=== PATIENT | male | born 1975 | race Caucasian/White ===

== ENCOUNTER 2017-03-24 16:34 | Emergency (ER) | payer OTHER ==
[~2017-03-24] VITALS: Ht 175.3 cm; Wt 99.8 kg
[~2017-03-24 16:34] MED LIST: ALPR1T PO; ALPR2TAB2 PO; CEPH500T PO; HYDR-3729 PO; HYDR-3812 PO; IBP800T PO; NAPR-243 PO; NICOTINE PATCH1 EAC3 TD; TRAM50TA2 PO
--- OUTSIDE RECORDS SUMMARY | 2017-03-24 16:42 | XMS REPORT ---
Author Author JANAK RODAS Organization [employer] Address Unknown Phone Unavailable Care Team Providers Care Reimbursement Coordinator Name Role Phone JANAK RODAS CP Unavailable Allergies, Adverse Reactions, Alerts Substance Reaction Event Type N.K.D.A. Info Not Available Non Drug Allergy Problems Problem Type Condition Code Onset Dates Condition Status Assessment Hypertension I10 Active Problem GERD (gastroesophageal reflux disease) K21.9 Active Problem Tobacco abuse Z72.0 Active Assessment Dental caries K02.9 Active Assessment Tobacco abuse Z72.0 Active Problem Routine health maintenance Z00.00 Active Problem Family history of diabetes mellitus Z83.3 Active Problem Dental caries K02.9 Active Problem Hypertension I10 Active Problem Midline thoracic back pain M54.6 Active Problem Depression with anxiety F41.8 Active Problem Insomnia G47.00 Active Medications Medication Code System Code Instructions Start Date End Date Status Dosage Prilosec [facility] [address]-64 20 mg Orally Once a day 1 capsules Ibuprofen [facility] [address]-50 800 MG Orally Three times a day October 04, 2015 1 tablet Amlodipine Besylate [facility] [address]-42 10 mg Orally Once a day January 04, 2016 1 tablet Xanax [facility] [address]-81 2 MG Orally Three-four times a day 1 tablet [place] [facility] [address]-75 5-325 MG Orally every 6 hrs January 08, 2016 1 tablet as needed Lisinopril [facility] [address]-99 20 mg Orally Once a day- October 04, 2015 1 tablet Procedures Procedure Coding System Code Date Office Visit, Est Pt., Level 3 CPT-4 30213 January 04, 2016 Vital Signs Date/Time: January 04, 2016 Cardiac Monitoring Heart Rate 88 bpm Weight 200.0 lbs Height 70 in Blood Pressure Diastolic 100 mmHg Blood Pressure Systolic 160 mmHg Results No Known Results Summary Purpose eClinicalWorks Submission
--- OUTSIDE RECORDS SUMMARY | 2017-03-24 16:42 | XMS REPORT ---
Author Author JANAK RODAS [facility] [employer] Address Unknown Phone Unavailable Care Team Providers Care Pediatrician Managing Partner Name Role Phone JANAK RODAS CP Unavailable Allergies, Adverse Reactions, Alerts Substance Reaction Event Type N.K.D.A. Info Not Available Non Drug Allergy Problems Problem Type Condition Code Onset Dates Condition Status Assessment Hypertension I10 Active Problem Tobacco abuse Z72.0 Active Assessment Routine health maintenance Z00.00 Active Problem Family history of diabetes mellitus Z83.3 Active Problem Depression with anxiety F41.8 Active Problem Routine health maintenance Z00.00 Active Problem Midline thoracic back pain M54.6 Active Problem GERD (gastroesophageal reflux disease) K21.9 Active Problem Insomnia G47.00 Active Problem Hypertension I10 Active Assessment Insomnia G47.00 Active Assessment Depression with anxiety F41.8 Active Assessment Family history of diabetes mellitus Z83.3 Active Assessment GERD (gastroesophageal reflux disease) K21.9 Active Medications Medication Code System Code Instructions Start Date End Date Status Dosage Prilosec [facility] [address]-30 20 mg Orally Once a day 1 capsules Amlodipine Besylate [facility] [address]-32 5 MG Orally Once a day October 19, 2015 1 tablet Remeron [facility] [address]-14 15 MG Orally Once a day 1 tablet before bedtime in the evening Xanax [facility] [address]-52 2 MG Orally Three-four times a day 1 tablet Ibuprofen [facility] [address]-02 800 MG Orally Three times a day October 04, 2015 1 tablet Lisinopril [facility] [address]-82 20 MG Orally Once a day October 04, 2015 1 tablet Hydrocodone-Acetaminophen [facility] [address]-73 5-325 MG Orally every 6 hrs 1 tablet as needed Procedures Procedure Coding System Code Date Office Visit, Est Pt., Level 3 CPT-4 68808 October 19, 2015 Vital Signs Date/Time: October 19, 2015 Temperature 98.7 F Weight 177.0 lbs Height 70 in BMI 25.39 Index Blood Pressure Diastolic 110 mmHg Blood Pressure Systolic 200 mmHg Cardiac Monitoring Heart Rate 88 bpm Results No Known Results Summary Purpose [employer]ClinicalWorks Submission
--- OUTSIDE RECORDS SUMMARY | 2017-03-24 16:42 | XMS REPORT ---
Author Author SHARMILA SCHULZ Organization [facility] Address [address] [place] [address] Care Team Providers Care Biophysics Professor Name Role Phone SHARMILA SCHULZ Unavailable PROBLEMS Type Condition ICD9-CM Code [id number] Code Onset Dates Condition Status SNOMED Code Problem Family history of diabetes mellitus Z83.3 Active 771233313 Problem Insomnia G47.00 Active 723551659 Problem Depression with anxiety F41.8 Active 898270645 Problem Panic disorder [episodic paroxysmal anxiety] without agoraphobia F41.0 Active 02694653 Problem Primary insomnia F51.01 Active 7793486 Problem Mixed hyperlipidemia E78.2 Active 951740371 Problem Dental caries K02.9 Active 70406918 Problem Anxiety F41.9 Active 25532363 Problem Marijuana use F12.10 Active 19550212 Problem GERD (gastroesophageal reflux disease) K21.9 Active 626127801 Problem Tobacco abuse Z72.0 Active 79596147 Problem Hypertension I10 Active 91020206 Problem Midline thoracic back pain M54.6 Active 859743764 Problem Routine health maintenance Z00.00 Active 681870996 ALLERGIES Substance Reaction Event Type Date Status N.K.D.A. Unknown Non Drug Allergy Jun, Unknown SOCIAL HISTORY No smoking Hx information available PLAN OF CARE Activity Details Follow Up prn Reason: VITAL SIGNS Height 70 in 2016-07-20 Weight 192.4 lbs 2016-07-20 Temperature 98.2 degrees Fahrenheit 2016-07-20 Heart Rate 90 bpm 2016-07-20 Respiratory Rate 18 2016-07-20 BMI 27.60 kg/m2 2016-07-20 Blood pressure systolic 136 mmHg 2016-07-20 Blood pressure diastolic 82 mmHg 2016-07-20 MEDICATIONS Medication Instructions Dosage Frequency Start Date End Date Duration Status Amlodipine Besylate 10 mg Orally Once a day 1 tablet 24h Dec, Active Lisinopril 20 mg Orally Once a day- 1 tablet Sep, Active BuPROPion HCl (XL) 300 MG Orally Once a day 1 tablet in the morning 24h Active Clonazepam 1 MG Orally Twice a day 1 tablet every morning and 2 tablets at night 12h Active Prilosec 20 mg Orally Once a day 1 capsules 24h Active Atorvastatin Calcium 10 mg Orally Once a day 1 tablet 24h 15 May, 2016 30 day(s) Active Trazodone HCl 100 MG Orally Once a day 2 tablet at bedtime 24h Active Hydrocodone-Acetaminophen 5-325 MG Orally every 6 hrs 1 tablet as needed 6h Jun, 2 Jul, 2016 7 days Active RESULTS Name Result Date Reference Range Xray : Ankle, Right 3 views (IN HOUSE) 2016-07-20 PROCEDURES Procedure Date Ordered Related Diagnosis Body Site X-RAY EXAM OF ANKLE Jul 20, 2016 Office Visit, Est Pt., Level 3 Jul 20, 2016 IMMUNIZATIONS No Known Immunizations
--- OUTSIDE RECORDS SUMMARY | 2017-03-24 16:42 | XMS REPORT ---
Author Author SHARMILA SCHULZ Organization [facility] Address [address] [place] [address] Care Team Providers Care Cardio Tech Name Role Phone SHARMILA SCHULZ Unavailable PROBLEMS Type Condition ICD9-CM Code [id number] Code Onset Dates Condition Status SNOMED Code Problem Family history of diabetes mellitus Z83.3 Active 349993788 Problem Insomnia G47.00 Active 622455877 Problem Depression with anxiety F41.8 Active 501335386 Problem Panic disorder [episodic paroxysmal anxiety] without agoraphobia F41.0 Active 15744295 Problem Primary insomnia F51.01 Active 9934284 Problem Mixed hyperlipidemia E78.2 Active 244233720 Problem Dental caries K02.9 Active 96304311 Problem Anxiety F41.9 Active 83092405 Problem Marijuana use F12.10 Active 75953238 Problem GERD (gastroesophageal reflux disease) K21.9 Active 335133196 Problem Tobacco abuse Z72.0 Active 61026872 Problem Hypertension I10 Active 09694005 Problem Midline thoracic back pain M54.6 Active 097813383 Problem Routine health maintenance Z00.00 Active 231215485 ALLERGIES Unknown Allergies SOCIAL HISTORY No smoking Hx information available PLAN OF CARE VITAL SIGNS MEDICATIONS Unknown Medications RESULTS No Results PROCEDURES No Known procedures IMMUNIZATIONS No Known Immunizations
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
--- OUTSIDE RECORDS SUMMARY | 2017-03-24 16:42 | XMS REPORT ---
Author Author JANET HARRIS [facility] Address [address] [place] [address] Care Team Providers Care Waxing Machine Operator Name Role Phone AJNET HARRIS Unavailable PROBLEMS Type Condition ICD9-CM Code DUQ20-AD Code Onset Dates Condition Status SNOMED Code Problem Family history of diabetes mellitus Z83.3 Active 119783985 Problem Insomnia G47.00 Active 075949789 Problem Depression with anxiety F41.8 Active 960501641 Problem Panic disorder [episodic paroxysmal anxiety] without agoraphobia F41.0 Active 97977944 Problem Primary insomnia F51.01 Active 5662224 Problem Mixed hyperlipidemia E78.2 Active 978774089 Problem Dental caries K02.9 Active 10514010 Problem Anxiety F41.9 Active 59888286 Problem Marijuana use F12.10 Active 55855633 Problem GERD (gastroesophageal reflux disease) K21.9 Active 522749305 Problem Tobacco abuse Z72.0 Active 66316766 Problem Hypertension I10 Active 87615851 Problem Midline thoracic back pain M54.6 Active 225938408 Problem Routine health maintenance Z00.00 Active 082043571 ALLERGIES No Information SOCIAL HISTORY Never Assessed PLAN OF CARE Activity Details Follow Up prn Reason: VITAL SIGNS Height 70 in 2016-07-27 Blood pressure systolic 152 mmHg 2016-07-27 Blood pressure diastolic 88 mmHg 2016-07-27 MEDICATIONS Medication Instructions Dosage Frequency Start Date End Date Duration Status Hydrocodone-Acetaminophen 7.5-325 MG Orally every 6 hrs prn for pain 1 tablet as needed Jul, Aug, 28 days Active RESULTS No Results PROCEDURES No Known procedures [...]
--- OUTSIDE RECORDS SUMMARY | 2017-03-24 16:42 | XMS REPORT ---
Author Author SHANEL JEFF [facility] [employer] Address Unknown Phone Unavailable Care Team Providers Care Pickle Pumper Name Role Phone SHANEL JEFF CP Unavailable Allergies, Adverse Reactions, Alerts Substance Reaction Event Type Codeine Sulfate Info Not Available Drug Allergy Problems Problem Type Condition ICD-9 Code Onset Dates Condition Status Problem Major depressive disorder, recurrent episode, unspecified 296.30 Active Problem Other dysfunctions of sleep stages or arousal from sleep 307.47 Active Problem Screening examination for pulmonary tuberculosis V74.1 Active Assessment Concussion 850.9 Active Medications Medication Code System Code Instructions Start Date End Date Status Dosage Ibuprofen [facility] [address]-89 600 MG Orally Three times a day 1 tablet Keflex [facility] [address]-27 500 MG Orally Twice a day 1 capsule Xanax [facility] [address]-84 0.5 MG Orally Three times a day 1 tablet Bactrim [facility] [address]-05 400-80 MG Orally Once a day 2 tablets Tramadol HCl [facility] [address]-11 50 MG Orally every 6 hrs 1 tablet as needed Procedures Procedure Coding System Code Date Office Visit, Est Pt., Level 3 CPT-4 33502 Feb 19, 2015 Vital Signs Date/Time: Feb 19, 2015 Temperature 98.0 F Weight 155 lbs Height 70 in BMI 22.24 Index Blood Pressure Diastolic 88 mmHg Blood Pressure Systolic 140 mmHg Cardiac Monitoring Heart Rate 78 bpm Results No Known Results Summary Purpose eClinicalWorks Submission
--- OUTSIDE RECORDS SUMMARY | 2017-03-24 16:42 | XMS REPORT ---
Author Author JANAK RODAS Organization [employer] Address Unknown Phone Unavailable Care Team Providers Care Phlebotomy Support Tech Name Role Phone JANAK RODAS CP Unavailable Allergies No Known Allergies Problems Problem Type Condition Code Onset Dates Condition Status Problem GERD (gastroesophageal reflux disease) K21.9 Active Problem Tobacco abuse Z72.0 Active Problem Routine health maintenance Z00.00 Active Problem Family history of diabetes mellitus Z83.3 Active Problem Dental caries K02.9 Active Problem Hypertension I10 Active Problem Midline thoracic back pain M54.6 Active Problem Depression with anxiety F41.8 Active Problem Insomnia G47.00 Active Medications Medication Code System Code Instructions Start Date End Date Status Dosage Amlodipine Besylate [facility] [address]-13 10 mg Orally Once a day January 04, 2016 1 tablet Lisinopril [facility] [address]-34 20 mg Orally Once a day- October 04, 2015 1 tablet [address] [facility] [address]-25 20 mg Orally Once a day 1 capsules Results No Known Results Summary Purpose eClinicalWorks Submission
--- OUTSIDE RECORDS SUMMARY | 2017-03-24 16:42 | XMS REPORT ---
Author Author JANAK RODAS Organization [facility] Address [address] [place] [address] Care Team Providers Care Stream Control Officer Name Role Phone RODASROCHELLE GallardoELE Unavailable PROBLEMS Type Condition ICD9-CM Code MVT51-OU Code Onset Dates Condition Status SNOMED Code Problem Depression with anxiety F41.8 Active 121709005 Problem Routine health maintenance Z00.00 Active 317593549 Problem Family history of diabetes mellitus Z83.3 Active 464626240 Problem Panic disorder [episodic paroxysmal anxiety] without agoraphobia F41.0 Active 49903894 Problem Primary insomnia F51.01 Active 7087719 Problem Marijuana use F12.10 Active 44577135 Problem Dental caries K02.9 Active 99621441 Problem Anxiety F41.9 Active 27133131 Problem Mixed hyperlipidemia E78.2 Active 441882119 Problem GERD (gastroesophageal reflux disease) K21.9 Active 986516765 Problem Midline thoracic back pain M54.6 Active 104182536 Problem Hypertension I10 Active 31088031 Problem Tobacco abuse Z72.0 Active 63955032 Problem Insomnia G47.00 Active 301884100 ALLERGIES Unknown Allergies SOCIAL HISTORY No smoking Hx information available PLAN OF CARE VITAL SIGNS MEDICATIONS Medication Instructions Dosage Frequency Start Date End Date Duration Status Atorvastatin Calcium 10 mg Orally Once a day 1 tablet 24h May, 30 day(s) Active RESULTS No Results PROCEDURES No Known procedures IMMUNIZATIONS No Known Immunizations
--- OUTSIDE RECORDS SUMMARY | 2017-03-24 16:42 | XMS REPORT ---
Author Author SHANEL JEFF [facility] eClinicalWorks Address Unknown Phone Unavailable Care Team Providers Care Press Breaker Name Role Phone SHANEL JEFF CP Unavailable [...] Instructions Start Date End Date Status Dosage Xanax [facility] [address]-11 0.5 MG Orally Three times a day 1 tablet Procedures Procedure Coding System Code Date Office Visit, Est Pt., Level 2 CPT-4 41049 Feb 25, 2015 Vital Signs Date/Time: Feb 25, 2015 Temperature 99.7 F Weight 153.1 lbs Height 70 in BMI 21.97 Index Blood Pressure Diastolic 108 mmHg Blood Pressure Systolic 160 mmHg Cardiac Monitoring Heart Rate 86 bpm Results No Known Results Summary Purpose eClinicalWorks Submission
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
[2017-03-24] MEDS ORDERED: AZIT250T PO (16:53)
[2017-03-24] MEDS ORDERED: DEXAMETHASONE PF 10 MG/ML (DECADRON) VIAL IM STA (16:54)
[2017-03-24] MEDS ORDERED: ACETAMINOPHEN 325 MG TABLET/CAPLET (TYLENOL) PO STA (16:54)
--- NOTE | 2017-03-24 16:54 | ED EENT ---
History of Present Illness General Stated Complaint: R EAR SWOLLEN History of Present Illness Time seen by provider: 16:45 Initial Comments Patient reports increasing right ear pain. He was seen at [facility] yesterday and started on Ciprodex drops. He reports today that they year has become more swollen and he is unable to get the drops into the canal. He reports that his hearing is decreased in the right ear. He also complains of a headache and sinus pressure. He took ibuprofen approximately 5 hours ago, denies any other analgesia. Timing/Duration: abrupt Severity: moderate Location: ear (R) Prearrival Treatment: no prearrival treatment Modifying Factors: Improves With Rest Associated Symptoms: facial pain/swelling, fever Allergies and Home Medications Allergies Coded Allergies: codeine (Unverified Allergy, Mild, UPSET STOMACH, 05/04/10) Home Medications Alprazolam 2 Mg Tablet, 2 MG PO QID PRN for ANXIETY, #90 (Reported) Azithromycin 250 Mg Tablet, 250 MG PO UD, #6 Ref 0 TAKE 2 TABLETS TODAY, THEN TAKE 1 TABLET DAILY FOR 4 MORE DAYS Prescribed by: ANAYELI MESA on 03/24/17 1653 Cephalexin 500 Mg Tablet, 500 MG PO QID, #20 Prescribed by: VAL CUMMINGS on 02/14/15 1727 Hydrocodone/Acetaminophen 1 Each Tablet, 1 EACH PO Q6H PRN for PAIN, #30 Prescribed by: GÉNESIS ANAYA on 02/13/15 1152 Hydrocodone/Acetaminophen 1 Each Tablet, 1-2 EACH PO Q6H PRN for PAIN, #15 Ref 0 Prescribed by: VAL CUMMINGS on 02/14/15 1727 Review of Systems Constitutional: no symptoms reported, see HPI Ears: See HPI, Pain All Other Systems Reviewed Negative Unless Noted: Yes Past Ifaigyq-Koozyt-Ijlcul Hx Patient Social History Recent Foreign Travel: No Contact w/Someone Who Travel: No Immunizations Up To Date Tetanus Booster (TDap): Less than 5yrs Seasonal Allergies Seasonal Allergies: No Surgeries Surgeries: Orthopedic Respiratory Respiratory Disorders: Pneumonia Currently Using CPAP: No Currently Using BIPAP: No Reproductive System Hx Reproductive Disorders: No Sexually Transmitted Disease: No HIV/AIDS: No Genitourinary Genitourinary Disorders: Kidney Stones Gastrointestinal Gastrointestinal Disorders: Ulcer Musculoskeletal Musculoskeletal Disorders: Fractures Psychosocial Behavioral Health Disorders: Anxiety, PTSD Blood Transfusions Adverse Reaction to a Blood Tr: No Reviewed Nursing Assessment Reviewed/Agree w Nursing PMH: Yes Family Medical History Significant Family History: No Pertinent Family Hx Family Medial History: Hypertension 19 MOTHER G8 BROTHER G8 BROTHER G8 BROTHER Neoplasm 19 MOTHER Physical Exam Vital Signs Vital Sign - Last 12Hours 03/24/17 03/24/17 16:56 17:13 Temp 97.5 Pulse 70 Resp 16 B/P (MAP) 127/93 Pulse Ox 16 O2 Delivery Room Air General Appearance: WD/WN, no apparent distress Eyes: bilateral eye normal inspection, bilateral eye PERRL, bilateral eye EOMI Ears: right ear swelling, right ear tenderness, right ear TM dull, right ear other (ear wick placed in the right ear, Ciprodex drops administered. Patient reports hearing improved after ear wick placed.), left ear canal normal, left ear TM normal, bilateral ear auricle normal Nose: normal inspection, sinus tenderness (trace right frontal) Mouth/Throat: normal mouth inspection, pharynx normal, No maxillary swelling, No pharynx swelling, No pharynx tenderness Neck: full range of motion, normal inspection, lymphadenopathy (R) Cardiovascular: normal peripheral pulses, regular rate, rhythm Respiratory: chest non-tender, lungs clear Neurologic/Psychiatric: no motor/sensory deficits, alert, normal mood/affect, oriented x 3 Laceration Repair : Suture Size: 5-0 Progress/Results/Core Measures Results/Orders My Orders Orders - ANAYELI MESA Dexamethasone Pf Injection (Decadron Pf (03/24/17 16:54) Acetaminophen Tablet/Caplet (Tylenol T (03/24/17 16:54) Dexamethasone Injection (Decadron Inject (03/24/17 16:56) Medications Given in ED Current Medications Medications Dose Ordered Sig/Augustin Route Start Time Stop Time Status Last Admin Dose Admin Dexamethasone Sodium Phosphate 10 mg STK-MED ONCE .ROUTE 03/24/17 16:56 03/24/17 17:04 DC 03/24/17 17:05 10 MG Vital Signs/I&O Vital Sign - Last 12Hours 03/24/17 03/24/17 03/24/17 03/24/17 16:56 17:06 17:06 17:13 Temp 97.5 97.5 97.5 97.5 Pulse 70 70 Resp 16 B/P (MAP) 127/93 Pulse Ox 16 16 O2 Delivery Room Air Departure Impression Impression: Primary Impression: Otitis externa Qualified Codes: H60.311 - Diffuse otitis externa, right ear Disposition: 01 HOME, SELF-CARE Condition: Improved Departure-Patient Inst. Decision time for Depature: 16:55 Referrals: JANAK RODAS APRN (PCP/Family) Primary Care Physician Patient Instructions: Outer Ear Infection (DC) Add. Discharge Instructions: Leave earwick in place and continue to administer eardrops as prescribed, replace earwick as needed. Follow-up at [facility] in 2-3 days if symptoms are not improving. Take antibiotic as prescribed. Alternate between Tylenol 650 mg and ibuprofen 600 mg every 4 hours for pain or fever. Return to emergency department for temperature greater than 101, new problems or concerns. Scripts Azithromycin (Zithromax) 250 Mg Tablet 250 MG PO UD, #6 TAB 0 Refills TAKE 2 TABLETS TODAY, THEN TAKE 1 TABLET DAILY FOR 4 MORE DAYS Prov: ANAYELI MESA 03/24/17 ANAYELI MESA Mar 24, 2017 16:54
[2017-03-24] MEDS ORDERED: DEXAMETHASONE 10 MG/ML (DECADRON) 1 ML VIAL ONE (16:56)
[2017-03-24 17:13] VITALS: BP 127/93
== END 2017-03-24 17:13 | disposition home or self-care (01) ==
LOC: EDUNIT# 16:34 → ER 16:37
DX: H60.91 Unspecified otitis externa, right ear (principal); F41.9 Anxiety disorder, unspecified; F43.10 Post-traumatic stress disorder, unspecified; Z87.81 Personal history of (healed) traumatic fracture; Z87.442 Personal history of urinary calculi; Z87.01 Personal history of pneumonia (recurrent)
CPT/HCPCS: 96372; 99284

== ENCOUNTER 2018-03-18 20:34 | Emergency (ER) | payer OTHER ==
[~2018-03-18] VITALS: Ht 182.9 cm; Wt 104.3 kg
[~2018-03-18 20:34] MED LIST changes: +ACHD5005 PO; +AZIT250T PO; -HYDR-3812 PO
--- NOTE | 2018-03-18 21:12 | ED Abdominal Pain ---
General Stated Complaint: POSS HERNIA Source of Information: Patient Exam Limitations: No Limitations History of Present Illness Date Seen by Provider: Mar 18, 2018 Time Seen by Provider: 21:08 Initial Comments To ER with suspicions of a hernia. He states this began last night when he was coughing which prompted a vomiting episode. He then developed some umbilical pain described as a burning sensation. He's had a small bulge in the belly button region for several months but only yesterday to become painful. No vomiting today, passing gas and having bowel movements as per his usual. However he has this persistent burning pain that better when he stands up and worse when he sits down. He does drink about 6-8 shots of whiskey daily, also ran out of his Klonopin 1 mg tablets 5-7 days ago. Timing/Duration: 24 Hours Severity/Quality: Moderate Radiation: No Radiation Associated Symptoms: Nausea/Vomiting (last night) Allergies and Home Medications Allergies Coded Allergies: codeine (Unverified Allergy, Mild, UPSET STOMACH, 05/04/10) Home Medications Alprazolam 2 Mg Tablet, 2 MG PO QID PRN for ANXIETY, (Reported) Azithromycin 250 Mg Tablet, 250 MG PO UD TAKE 2 TABLETS TODAY, THEN TAKE 1 TABLET DAILY FOR 4 MORE DAYS Prescribed by: ANAYELI MESA on 03/24/17 1653 Cephalexin 500 Mg Tablet, 500 MG PO QID Prescribed by: VAL CUMMINGS on 02/14/15 1727 Hydrocodone Bit/Acetaminophen 1 Each Tablet, 1-2 EACH PO Q6H PRN for PAIN Prescribed by: VAL CUMMINGS on 02/14/15 172 Hydrocodone/Acetaminophen 1 Each Tablet, 1 EACH PO Q6H PRN for PAIN Prescribed by: GÉNESIS ANAYA on 02/13/15 1152 Patient Home Medication List Home Medication List Reviewed: Yes Review of Systems Review of Systems Constitutional: see HPI EENTM: No Symptoms Reported Respiratory: See HPI, Cough Gastrointestinal: See HPI, Abdominal Pain; Denies Constipated, Denies Diarrhea ; Nausea Genitourinary: No Symptoms Reported Musculoskeletal: no symptoms reported Skin: no symptoms reported Psychiatric/Neurological: No Symptoms Reported, Emotional Problems Past Bragbvu-Qgbpbc-Avvrsm Hx Patient Social History Recent Foreign Travel: No Contact w/Someone Who Travel: No Immunizations Up To Date Tetanus Booster (TDap): Less than 5yrs Seasonal Allergies Seasonal Allergies: No Past Medical History Orthopedic Pneumonia Currently Using CPAP: No Currently Using BIPAP: No Reproductive Disorders: No Sexually Transmitted Disease: No HIV/AIDS: No Kidney Stones Ulcer Fractures Anxiety, PTSD Adverse Reaction/Blood Tranf: No Family Medical History Hypertension 19 MOTHER G8 BROTHER G8 BROTHER G8 BROTHER Neoplasm 19 MOTHER No Pertinent Family Hx Physical Exam Vital Signs Vital Signs - First Documented 03/18/18 21:00 Temp 98.4 Pulse 120 Resp 18 B/P (MAP) 154/118 (130) Pulse Ox 95 O2 Delivery Room Air Capillary Refill : Height/Weight/BMI Height: 5'9.00" Weight: 220lbs. 8.0oz. 99.914529hr; BMI Method:Estimated General Appearance: WD/WN, no apparent distress HEENT: PERRL/EOMI, normal ENT inspection Respiratory: no respiratory distress, no accessory muscle use Cardiovascular: regular rate, rhythm, no murmur Gastrointestinal: normal bowel sounds, soft, tenderness ( umbilical bulge which does not feel like a loop of bowel but more likely a fat-containing umbilical hernia. Bowel sounds are hypoactive.) Extremities: normal range of motion, non-tender Neurologic/Psychiatric: alert, normal mood/affect, oriented x 3 Skin: normal color, warm/dry Procedures/Interventions Suture Size: 5-0 Progress/Results/Core Measures Results/Orders Lab Results Laboratory Tests Test 03/18/18 21:20 Range/Units White Blood Count 9.5 4.3-11.0 10^3/uL Red Blood Count 4.86 4.35-5.85 10^6/uL Hemoglobin 16.6 13.3-17.7 G/DL Hematocrit 46 40-54 % Mean Corpuscular Volume 94 80-99 FL Mean Corpuscular Hemoglobin 34 25-34 PG Mean Corpuscular Hemoglobin Concent 36 32-36 G/DL Red Cell Distribution Width 12.5 10.0-14.5 % Platelet Count 323 130-400 10^3/uL Mean Platelet Volume 9.6 7.4-10.4 FL Neutrophils (%) (Auto) 72 42-75 % Lymphocytes (%) (Auto) 19 12-44 % Monocytes (%) (Auto) 9 0-12 % Eosinophils (%) (Auto) 0 0-10 % Basophils (%) (Auto) 0 0-10 % Neutrophils # (Auto) 6.8 1.8-7.8 X 10^3 Lymphocytes # (Auto) 1.8 1.0-4.0 X 10^3 Monocytes # (Auto) 0.8 0.0-1.0 X 10^3 Eosinophils # (Auto) 0.0 0.0-0.3 10^3/uL Basophils # (Auto) 0.0 0.0-0.1 10^3/uL My Orders Orders - BRIT ROGERS APRN Cbc With Automated Diff (03/18/18 21:06) Ct Abdomen/Pelvis Wo (03/18/18 21:06) Clonazepam Tablet (Klonopin Tablet) (03/18/18 21:15) Lorazepam Tablet (Ativan Tablet) (03/18/18 21:30) Lorazepam Tablet (Ativan Tablet) (03/18/18 21:45) Vital Signs/I&O 03/18/18 21:00 Temp 98.4 Pulse 120 Resp 18 B/P (MAP) 154/118 (130) Pulse Ox 95 O2 Delivery Room Air Departure Impression Primary Impression: fat-containing umbilical hernia Disposition: 01 HOME, SELF-CARE Condition: Stable Departure-Patient Inst. Decision time for Depature: 21:11 Referrals: [facility] [place] Primary Care Physician JANAK RODAS APRN (Family) Primary Care Physician NANDO STEVEN BRETT D DO JENKINS, XAVIER M MD KIDO, TAKAAKI MD Patient Instructions: Abdominal Hernia (DC) Add. Discharge Instructions: 1. Follow-up with your regular doctor or one of the surgeons listed for further evaluation. BRIT ROGERS APRN Mar 18, 2018 21:12
[2018-03-18] MEDS ORDERED: clonazePAM 1 MG (KlonoPIN) TAB PO ONE (21:15)
[2018-03-18 21:28] LABS: BASOPHILS % (AUTO) 0 % (0-10); EOSINOPHILS % (AUTO) 0 % (0-10); HEMATOCRIT 46 % (40-54); HEMOGLOBIN 16.6 G/DL (13.3-17.7); LYMPHOCYTES # (AUTO) 1.8 X 10^3 (1.0-4.0); LYMPHOCYTES % (AUTO) 19 % (12-44); MEAN CORPUSCULAR HEMOGLOBIN 34 PG (25-34); MEAN CORPUSCULAR HGB CONC 36 G/DL (32-36); MEAN CORPUSCULAR VOLUME 94 FL (80-99); MEAN PLATELET VOLUME 9.6 FL (7.4-10.4); MONOCYTES # (AUTO) 0.8 X 10^3 (0.0-1.0); MONOCYTES % (AUTO) 9 % (0-12); NEUTROPHILS # (AUTO) 6.8 X 10^3 (1.8-7.8); NEUTROPHILS % (AUTO) 72 % (42-75); PLATELET COUNT 323 10^3/uL (130-400); RED BLOOD COUNT 4.86 10^6/uL (4.35-5.85); RED CELL DISTRIBUTION WIDTH 12.5 % (10.0-14.5); WHITE BLOOD COUNT 9.5 10^3/uL (4.3-11.0)
[2018-03-18] MEDS ORDERED: LORazepam 1 MG (ATIVAN) TAB PO ONE (21:30)
[2018-03-18] MEDS ORDERED: LORazepam 0.5 MG (ATIVAN) TABLET PO ONE (21:45)
--- NOTE | 2018-03-18 21:48 | Diagnostic Imaging Report ---
PROCEDURE: CT abdomen and pelvis without contrast. TECHNIQUE: Multiple contiguous axial images were obtained through the abdomen and pelvis without the use of intravenous contrast. INDICATION: Abdominal pain. Comparison is made with prior CT from 02/12/2015. The lung bases are clear. The liver and gallbladder are unremarkable. The pancreas and spleen are unremarkable. No adrenal mass is seen. No renal calculi or hydronephrosis is identified. Aorta is calcified but nonaneurysmal. The small and large bowel loops are normal caliber. No obstruction is seen. Small fat-containing umbilical hernia is again noted. No herniated bowel loops are seen. The appendix is unremarkable. There is no ascites. Bladder is unremarkable. IMPRESSION: Small fat containing umbilical hernia. No other significant abnormality is detected. Dictated by: Dictated on workstation # [id number]
[2018-03-18 21:56] VITALS: BP 155/116
== END 2018-03-18 21:56 | disposition home or self-care (01) ==
LOC: EDUNIT# 20:34 → ER 20:35
DX: K42.9 Umbilical hernia without obstruction or gangrene (principal); F41.9 Anxiety disorder, unspecified; F43.10 Post-traumatic stress disorder, unspecified; Z88.5 Allergy status to narcotic agent; Z87.01 Personal history of pneumonia (recurrent); Z87.442 Personal history of urinary calculi; Z87.19 Personal history of other diseases of the digestive system
CPT/HCPCS: 36415; 74176; 85025

== ENCOUNTER 2018-03-22 18:26 | Emergency (ER) | payer OTHER ==
[2018-03-22] MEDS ORDERED: PHEN-640 PO (22:24)
[2018-03-22] MEDS ORDERED: CLON1TAB13 PO (23:07)
== END 2018-03-22 19:50 | disposition left against medical advice (07) ==
LOC: EDUNIT# 18:26 → ER 18:27
DX: K46.9 Unspecified abdominal hernia without obstruction or gangrene (principal); R30.0 Dysuria

== ENCOUNTER 2018-03-22 20:53 | Emergency (ER) | payer OTHER ==
[~2018-03-22] VITALS: Ht 182.9 cm; Wt 104.3 kg
--- NOTE | 2018-03-22 21:50 | ED GU-Male ---
General Chief Complaint: -Male Stated Complaint: HERNIA, TROUBLE URINATING Nursing Triage Note: PT REPORTS COMING TO ER ON SUNDAY OR SUNDAY AND BEING TOLD HE HAS A HERNIA. WENT TO [facility] FOR URINATION PROBLEMS. [facility] PRESCRIBED MEDICATION TO HELP PT WITH URINATION AND ANTIBIOTIC. PT STATES HE IS NOT TAKING MEDICATION TO HELP HIM URINATE. PT STATES HE HAS URINATED SMALL AMOUNTS SINCE VISITING [facility]. STATES HE IS HAVING DULL "BLADDER PAINS". Source: patient Exam Limitations: no limitations History of Present Illness Date Seen by Provider: Mar 22, 2018 Time Seen by Provider: 21:48 Initial Comments To ER With reports of suprapubic abdominal pain, sensation of needing to urinate and sensation of incomplete bladder emptying. He states that he feels as though his bladder is full at this time but is unable to urinate. Bladder scan at the bedside reveals 30 mL of urine. He was seen at [facility] today and was given a prescription of Urecholine and Bactrim for these symptoms after providing a urine sample. He is unsure whether or not he had a bladder infection. He was seen here a few days ago and diagnosed with a fat- containing umbilical hernia. Timing/Duration: just prior to arrival Severity/Quality: moderate Location: suprapubic Radiation: none Activities at Onset: none Prior Genitourinary Problems: none Associated Symptoms: urinary frequency Allergies and Home Medications Allergies Coded Allergies: codeine (Unverified Allergy, Mild, UPSET STOMACH, 05/04/10) Home Medications Alprazolam 2 Mg Tablet, 2 MG PO QID PRN for ANXIETY, (Reported) Azithromycin 250 Mg Tablet, 250 MG PO UD TAKE 2 TABLETS TODAY, THEN TAKE 1 TABLET DAILY FOR 4 MORE DAYS Prescribed by: ANAYELI MESA on 03/24/17 1653 Cephalexin 500 Mg Tablet, 500 MG PO QID Prescribed by: VAL CUMMINGS on 02/14/15 1727 Clonazepam 1 Mg Tablet, 1 MG PO DAILY Prescribed by: BRIT ROGERS on 03/22/18 2307 Hydrocodone Bit/Acetaminophen 1 Each Tablet, 1-2 EACH PO Q6H PRN for PAIN Prescribed by: VAL CUMMINGS on 02/14/15 1727 Hydrocodone/Acetaminophen 1 Each Tablet, 1 EACH PO Q6H PRN for PAIN Prescribed by: GÉNESIS ANAYA on 02/13/15 1152 Phenazopyridine HCl 200 Mg Tablet, 1 TAB PO TID Prescribed by: BRIT ROGERS on 03/22/18 2224 Patient Home Medication List Home Medication List Reviewed: Yes Review of Systems Review of Systems Constitutional: see HPI EENTM: see HPI Respiratory: no symptoms reported Cardiovascular: no symptoms reported Genitourinary: see HPI, dysuria Musculoskeletal: no symptoms reported Skin: no symptoms reported Psychiatric/Neurological: No Symptoms Reported Endocrine: No Symptoms Reported Hematologic/Lymphatic: No Symptoms Reported Past Rozliiq-Glfhte-Gedukj Hx Patient Social History Alcohol Use: Regular Use Number of Drinks Today: GG Alcohol Beverage of Choice: Whiskey Recreational Drug Use: No Type Used: Cigarettes 2nd Hand Smoke Exposure: Yes Recent Foreign Travel: No Contact w/Someone Who Travel: No Recent Infectious Disease Expo: No Recent Hopitalizations: Yes (hx-pneumonia) Physical Abuse: No Sexual Abuse: No Immunizations Up To Date Tetanus Booster (TDap): Less than 5yrs Seasonal Allergies Seasonal Allergies: No Past Medical History Surgeries: Yes (right hand surgery/left knee arthroscopy) Orthopedic Respiratory: Yes Pneumonia Currently Using CPAP: No Currently Using BIPAP: No Cardiac: No Neurological: No Reproductive Disorders: No Sexually Transmitted Disease: No HIV/AIDS: No Kidney Stones Gastrointestinal: Yes Ulcer Musculoskeletal: Yes (BROKEN ARM ) Fractures Endocrine: No Cancer: No Psychosocial: Yes Anxiety, PTSD Integumentary: No Blood Disorders: No Adverse Reaction/Blood Tranf: No Family Medical History Hypertension 19 MOTHER G8 BROTHER G8 BROTHER G8 BROTHER Neoplasm 19 MOTHER No Pertinent Family Hx Physical Exam Vital Signs Vital Signs - First Documented 03/22/18 20:57 Temp 97.4 Pulse 116 Resp 14 B/P (MAP) 166/110 (128) Pulse Ox 98 Capillary Refill : Less Than 3 Seconds Height, Weight, BMI Height: 6'0" Weight: 230lbs. 8.0oz. 104.254755ut; BMI Method:Stated General Appearance: WD/WN, no apparent distress, other (Tremulous. Reported to RN that he reduce alcohol intake earlier this week.) HEENT: PERRL/EOMI, normal ENT inspection Neck: non-tender, full range of motion Respiratory: no respiratory distress, no accessory muscle use Gastrointestinal: normal bowel sounds, soft, tenderness (suprapubic) Neurologic/Psychiatric: alert, normal mood/affect, oriented x 3 Skin: normal color, warm/dry Procedures/Interventions Suture Size: 5-0 Progress/Results/Core Measures Suspected Sepsis Recent Fever Within 48 Hours: No Infection Criteria Present: None New/Unexplained Altered Menta: No Sepsis Screen: No Definite Risk SIRS Temperature:97.4 Pulse: 116 Respiratory Rate: 14 Laboratory Tests 03/22/18 22:35: White Blood Count 10.5 Blood Pressure 166 /110 Mean: 128 Laboratory Tests 03/22/18 22:35: Creatinine 1.13, Platelet Count 311 Results/Orders Lab Results Laboratory Tests Test 03/22/18 22:03 03/22/18 22:35 Range/Units Urine Color YELLOW Urine Clarity CLEAR Urine pH 6 5-9 Urine Specific [place] 1.025 H 1.016-1.022 Urine Protein 2+ H NEGATIVE Urine Glucose (UA) NEGATIVE NEGATIVE Urine Ketones 1+ H NEGATIVE Urine Nitrite NEGATIVE NEGATIVE Urine Bilirubin 1+ H NEGATIVE Urine Urobilinogen NORMAL NORMAL MG/DL Urine Leukocyte Esterase 1+ H NEGATIVE Urine RBC (Auto) 1+ H NEGATIVE Urine RBC 0-2 /HPF Urine WBC 0-2 /HPF Urine Squamous Epithelial Cells RARE /HPF Urine Crystals NONE /LPF Urine Bacteria NONE /HPF Urine Casts NONE /LPF Urine Mucus MODERATE H /LPF Urine Culture Indicated NO White Blood Count 10.5 4.3-11.0 10^3/uL Red Blood Count 4.71 4.35-5.85 10^6/uL Hemoglobin 16.1 13.3-17.7 G/DL Hematocrit 45 40-54 % Mean Corpuscular Volume 96 80-99 FL Mean Corpuscular Hemoglobin 34 25-34 PG Mean Corpuscular Hemoglobin Concent 36 32-36 G/DL Red Cell Distribution Width 12.4 10.0-14.5 % Platelet Count 311 130-400 10^3/uL Mean Platelet Volume 9.4 7.4-10.4 FL Neutrophils (%) (Auto) 69 42-75 % Lymphocytes (%) (Auto) 21 12-44 % Monocytes (%) (Auto) 10 0-12 % Eosinophils (%) (Auto) 0 0-10 % Basophils (%) (Auto) 0 0-10 % Neutrophils # (Auto) 7.2 1.8-7.8 X 10^3 Lymphocytes # (Auto) 2.2 1.0-4.0 X 10^3 Monocytes # (Auto) 1.0 0.0-1.0 X 10^3 Eosinophils # (Auto) 0.0 0.0-0.3 10^3/uL Basophils # (Auto) 0.0 0.0-0.1 10^3/uL Sodium Level 135 135-145 MMOL/L Potassium Level 4.2 3.6-5.0 MMOL/L Chloride Level 103 98-107 MMOL/L Carbon Dioxide Level 17 L 21-32 MMOL/L Anion Gap 15 H 5-14 MMOL/L Blood Urea Nitrogen 20 H 7-18 MG/DL Creatinine 1.13 0.60-1.30 MG/DL Estimat Glomerular Filtration Rate > 60 BUN/Creatinine Ratio 18 Glucose Level 110 H 70-105 MG/DL Calcium Level 9.7 8.5-10.1 MG/DL My Orders Orders - BRIT ROGERS APRN Bladder Scan (03/22/18 21:05) Ua Culture If Indicated (03/22/18 21:05) Phenazopyridine Tablet (Pyridium Tablet) (03/22/18 22:00) Ns Iv 1000 Ml (Sodium Chloride 0.9%) (03/22/18 22:45) Lorazepam Injection (Ativan Injection) (03/22/18 22:45) Ketorolac Injection (Toradol Injection) (03/22/18 22:45) Cbc With Automated Diff (03/22/18 22:36) Basic Metabolic Panel (03/22/18 22:36) Medications Given in ED Current Medications Medications Dose Ordered Sig/Augustin Route Start Time Stop Time Status Last Admin Dose Admin Ketorolac Tromethamine 15 mg ONCE ONCE IVP 03/22/18 22:45 03/22/18 22:46 DC 03/22/18 22:49 15 MG Lorazepam 1 mg ONCE PRN IVP 03/22/18 22:45 03/22/18 22:49 1 MG Phenazopyridine HCl 200 mg ONCE ONCE PO 03/22/18 22:00 03/22/18 22:01 DC 03/22/18 21:59 200 MG Vital Signs/I&O 03/22/18 20:57 Temp 97.4 Pulse 116 Resp 14 B/P (MAP) 166/110 (128) Pulse Ox 98 Capillary Refill : Less Than 3 Seconds Blood Pressure Mean: 128 Departure Communication (Admissions) 0097-he is not feeling any better. He still has a suprapubic discomfort. His urine was fairly concentrated so I did start an IV, will give a bag of saline. He is also very jittery he saw give a milligram of Ativan IV. He recently reduced his alcohol intake. Also Toradol IV 2307- doing much better at this time after Toradol and Ativan. No longer has the sensation of need to urinate and feels much less jittery. He states that he has not slept in about 48 hours and he feels as though he could finally sleep. In addition to reducing his alcohol intake he also has stopped his clonazepam because he ran out of it. It was last filled in December so he has not used it excessively. States that he does not like going to [facility] to get it filled so he just quit taking. I'll give him a short course of clonazepam to help while he is reducing his alcohol intake. Impression Primary Impression: Dysuria Additional Impression: Anxiety Disposition: 01 HOME, SELF-CARE Condition: Stable Departure-Patient Inst. Decision time for Depature: 22:22 Referrals: [facility] [place] Primary Care Physician JANAK RODAS APRN (Family) Primary Care Physician Patient Instructions: Dysuria, Adult (DC) Add. Discharge Instructions: 1. Call Dr. Balderas, urologist on Sunday to make an appointment to be seen for follow-up. Return to ER for any worsening symptoms such as fevers nausea vomiting or increased pain. Take the medication as directed to help with the discomfort. All discharge instructions reviewed with patient and/or family. Voiced understanding. Scripts Clonazepam (Clonazepam) 1 Mg Tablet 1 MG PO DAILY, #10 TAB Prov: BRIT ROGERS APRN 03/22/18 Phenazopyridine HCl (Pyridium) 200 Mg Tablet 1 TAB PO TID, #6 TAB Prov: BRIT ROGERS APRN 03/22/18 BRIT ROGERS APRN Mar 22, 2018 21:50
[2018-03-22] MEDS ORDERED: PHENAZOPYRIDINE 100 MG (PYRIDIUM) TABLET PO ONE (22:00)
[2018-03-22 22:09] LABS: CLARITY,URINE CLEAR; COLOR,URINE YELLOW; GLUCOSE, URINE (UA) NEGATIVE (NEGATIVE); KETONES,URINE 1+ (NEGATIVE); LEUKOCYTE ESTERASE ,URINE 1+ (NEGATIVE); NITRITE,URINE NEGATIVE (NEGATIVE); PH,URINE 6 (5-9); PROTEIN,URINE 2+ (NEGATIVE); UROBILINOGEN,URINE NORMAL (NORMAL)
[2018-03-22 22:16] LABS: RBC,URINE 0-2 /HPF; SQUAMOUS EPITHELIAL CELL,UR RARE /HPF; WBC,URINE 0-2 /HPF
[2018-03-22] MEDS ORDERED: PHEN-640 PO (22:24)
[2018-03-22 22:41] LABS: BASOPHILS % (AUTO) 0 % (0-10); EOSINOPHILS % (AUTO) 0 % (0-10); HEMATOCRIT 45 % (40-54); HEMOGLOBIN 16.1 G/DL (13.3-17.7); LYMPHOCYTES # (AUTO) 2.2 X 10^3 (1.0-4.0); LYMPHOCYTES % (AUTO) 21 % (12-44); MEAN CORPUSCULAR HEMOGLOBIN 34 PG (25-34); MEAN CORPUSCULAR HGB CONC 36 G/DL (32-36); MEAN CORPUSCULAR VOLUME 96 FL (80-99); MEAN PLATELET VOLUME 9.4 FL (7.4-10.4); MONOCYTES % (AUTO) 10 % (0-12); NEUTROPHILS # (AUTO) 7.2 X 10^3 (1.8-7.8); NEUTROPHILS % (AUTO) 69 % (42-75); PLATELET COUNT 311 10^3/uL (130-400); RED BLOOD COUNT 4.71 10^6/uL (4.35-5.85); RED CELL DISTRIBUTION WIDTH 12.4 % (10.0-14.5); WHITE BLOOD COUNT 10.5 10^3/uL (4.3-11.0)
[2018-03-22] MEDS ORDERED: KETOROLAC 30 MG/ML VIAL IVP ONE (22:45)
[2018-03-22] MEDS ORDERED: NS IV 1000 ML 1,000 ML IV SCH (22:45)
[2018-03-22] MEDS ORDERED: LORazepam INJ 2 MG/ML (ATIVAN) VIAL IVP PRN (22:45)
[2018-03-22 22:57] LABS: BUN/CREATININE RATIO 18; CALCIUM 9.7 MG/DL (8.5-10.1); CARBON DIOXIDE 17 MMOL/L (21-32); CHLORIDE 103 MMOL/L (98-107); CREATININE SERUM 1.13 MG/DL (0.60-1.30); GFR ESTIMATED > 60; GLUCOSE 110 MG/DL (70-105); POTASSIUM 4.2 MMOL/L (3.6-5.0); SODIUM 135 MMOL/L (135-145)
[2018-03-22] MEDS ORDERED: CLON1TAB13 PO (23:07)
[2018-03-22 23:34] VITALS: BP 166/100
[2018-03-23 07:56] LABS: BILIRUBIN,URINE 1+ (NEGATIVE)
== END 2018-03-22 23:34 | disposition home or self-care (01) ==
LOC: EDUNIT# 20:53 → ER 20:54
DX: R30.0 Dysuria (principal); F41.9 Anxiety disorder, unspecified; F43.10 Post-traumatic stress disorder, unspecified; Z88.5 Allergy status to narcotic agent; Z77.22 Contact with and (suspected) exposure to environmental tobacco smoke (acute) (chronic); Z87.01 Personal history of pneumonia (recurrent); Z87.442 Personal history of urinary calculi; Z87.19 Personal history of other diseases of the digestive system
CPT/HCPCS: 36415; 80048; 81000; 85025; 99284

== ENCOUNTER → 2019-01-17 | Outpatient (CLI) | payer SELFPAY ==
[~2019-01-17] MED LIST changes: +CATHETER FLUSH 10 ML SYR IV PRN; +CLON1TAB13 PO; +PHEN-640 PO; +morphine INJ 10 MG/ML 1ML (SYR OR VIAL) ONE
--- NOTE | 2019-01-17 17:43 | Diagnostic Imaging Report ---
RADIOPHARMACEUTICAL: 5.46 mCi Tc-99m Choletec IV. INDICATION: Right upper quadrant abdominal pain. COMPARISON: CT dated March 18, 2018. TECHNIQUE: Anterior dynamic imaging for 1 hour. After 1 hour, the gallbladder was not visualized, then the patient walked for a couple of minutes and additional imaging was obtained. The gallbladder was visualized at that time. Subsequently, patient drank an 8-ounce can of Ensure with additional imaging performed for 60 minutes. FINDINGS: There is homogenous uptake throughout the liver. The gallbladder is visualized at 64 minutes and small bowel at 20 minutes. After the patient ingested an 8-ounce can of Ensure, there is abnormal contraction of the gallbladder with abnormally low calculated GBEF at 30%. IMPRESSION: Delayed visualization of the gallbladder after 60 minutes with associated decreased gallbladder ejection fraction. 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 Given the abnormally low gallbladder ejection fraction, this can also relate to underlying biliary dyskinesia. Dictated by: Dictated on workstation # [id number]
== END ==
LOC: CARD 09:20
PROVIDERS: ATTEND Surgery
DX: R10.11 Right upper quadrant pain (principal); R93.2 Abnormal findings on diagnostic imaging of liver and biliary tract
CPT/HCPCS: 78227

== ENCOUNTER 2019-01-31 10:15 | Outpatient (CLI) | payer OTHER ==
[~2019-01-31] VITALS: Ht 182.9 cm; Wt 100.0 kg
[~2019-01-31 10:15] MED LIST changes: +AMLO10TA7 PO; -CATHETER FLUSH 10 ML SYR IV PRN; +DESV50TA PO; +GABA-488 PO; +LISI-552 PO; +MIRT15TA6 PO; +NABU750T PO; +OMEP20CA13 PO; +TAMS0.4C98 PO; +ZOLP12.546 PO; -morphine INJ 10 MG/ML 1ML (SYR OR VIAL) ONE
== END 2019-01-31 12:27 | disposition home or self-care (01) ==
LOC: PREOP 10:15
PROVIDERS: ATTEND Surgery
DX: Z01.818 Encounter for other preprocedural examination (principal)

== ENCOUNTER 2019-02-06 11:50 | Day surgery (SDC) | payer OTHER ==
[2019-02-06] VITALS (9 sets, daily range): BP systolic 135–153; BP diastolic 85–110
[~2019-02-06] VITALS: Ht 182.9 cm; Wt 117.3 kg
[2019-02-06] MEDS ORDERED: ceFAZolin INJECTION 1,000 MG in WATER (STERILE) FOR INJECTION 10 ML IV ONE (12:15)
[2019-02-06] MEDS: LACTATED RINGERS 1,000 ML IV PRN ×2 (12:30→16:20)
[2019-02-06 12:58] LABS: BASOPHILS % (AUTO) 0 % (0-10); EOSINOPHILS # (AUTO) 0.1 10^3/uL (0.0-0.3); EOSINOPHILS % (AUTO) 1 % (0-10); HEMATOCRIT 43 % (40-54); HEMOGLOBIN 14.9 G/DL (13.3-17.7); LYMPHOCYTES # (AUTO) 1.8 X 10^3 (1.0-4.0); LYMPHOCYTES % (AUTO) 18 % (12-44); MEAN CORPUSCULAR HEMOGLOBIN 32 PG (25-34); MEAN CORPUSCULAR HGB CONC 34 G/DL (32-36); MEAN CORPUSCULAR VOLUME 94 FL (80-99); MEAN PLATELET VOLUME 9.6 FL (7.4-10.4); MONOCYTES # (AUTO) 0.9 X 10^3 (0.0-1.0); MONOCYTES % (AUTO) 9 % (0-12); NEUTROPHILS # (AUTO) 7.2 X 10^3 (1.8-7.8); NEUTROPHILS % (AUTO) 72 % (42-75); PLATELET COUNT 297 10^3/uL (130-400); RED CELL DISTRIBUTION WIDTH 12.2 % (10.0-14.5)
[2019-02-06] MEDS ORDERED: ceFAZolin 2 GM/50 ML NS 50 ML IV ONE (13:00)
--- NOTE | 2019-02-06 13:56 | Progress Note-Pre Operative ---
Pre-Operative Progress Note H&P Reviewed The H&P was reviewed, patient examined and no changes noted. Date Seen by Provider: Feb 06, 2019 Time Seen by Provider: 13:55 Date H&P Reviewed: Feb 06, 2019 Time H&P Reviewed: 13:55 Pre-Operative Diagnosis: biliary dyskinesia, umbilical hernia MARIA D LEDESMA DO Feb 06, 2019 13:56
[2019-02-06] MEDS ORDERED: MIDAZOLAM 2 MG/2 ML (VERSED) VIAL ONE ×2 (14:05→14:22)
[2019-02-06] MEDS ORDERED: MIDAZOLAM 2 MG/2 ML (VERSED) VIAL IVP ONE (14:15)
[2019-02-06] MEDS ORDERED: MIDAZOLAM 2 MG/2 ML (VERSED) VIAL IV ONE (14:15)
[2019-02-06] MEDS ORDERED: ONDANSETRON 4 MG/2 ML (SDV) Z0FRAN ONE ×2 (14:21→15:26)
[2019-02-06] MEDS ORDERED: IOPAMIDOL 61% 30 ML (ISOVUE 300) VIAL IV ONE (14:21)
[2019-02-06] MEDS ORDERED: LIDOCAINE PF 2% 5 ML (XYLOCAINE) VIAL ONE (14:21)
[2019-02-06] MEDS ORDERED: BUP/EPI 0.5% 1:200,000 (MARCAINE) 10ML VIAL IJ ONE (14:21)
[2019-02-06] MEDS ORDERED: proPOfol 200 MG/20 ML (DIPRIVAN) VIAL IV ONE ×2 (14:21→17:16)
[2019-02-06] MEDS ORDERED: fentaNYL INJECTION 250 MCG/5 ML AMP ONE (14:22)
[2019-02-06] MEDS ORDERED: SEVOFLURANE (ULTANE) 15 ML INHAL SOLN ONE ×6 (14:22→17:22)
[2019-02-06] MEDS ORDERED: ROCURONIUM 10 MG/ML 5 ML SYRINGE IV ONE (14:24)
[2019-02-06] MEDS ORDERED: DEXAMETHASONE 10 MG/ML (DECADRON) 1 ML VIAL ONE (15:26)
[2019-02-06] MEDS ORDERED: GLYCOPYRROLATE 0.2 MG/ML (ROBINUL) 2 ML VIAL ONE (15:26)
[2019-02-06] MEDS ORDERED: NEOSTIGMINE 3 MG/3 ML VIAL ONE (15:26)
[2019-02-06] MEDS ORDERED: MEPERIDINE (DEMEROL) INJ 50 MG/ML IVP ONE (16:15)
[2019-02-06] MEDS ORDERED: morphine INJ 10 MG/ML 1ML (SYR OR VIAL) IVP ONE (16:15)
[2019-02-06] MEDS ORDERED: ONDANSETRON 4 MG/2 ML (SDV) Z0FRAN IVP PRN (16:15)
[2019-02-06] MEDS ORDERED: fentaNYL INJECTION 100 MCG/2 ML AMP IVP ONE (16:15)
[2019-02-06] MEDS ORDERED: PHENYLEPHRINE 100 MCG/ML 10 ML (ANESTHESIA) SYR ONE (17:15)
[2019-02-06] MEDS ORDERED: KETOROLAC 30 MG/ML VIAL ONE (17:18)
--- NOTE | 2019-02-06 17:18 | Diagnostic Imaging Report ---
INDICATION: Laparoscopic cholecystectomy. Cholangiogram. COMPARISON: None. TOTAL FLUOROSCOPY TIME: 18 seconds. TOTAL NUMBER OF FLUOROSCOPIC IMAGES SAVED: 79 FINDINGS: Multiple intraoperative image intensifier views of the right upper abdominal quadrant were obtained during intraoperative cholangiogram. Images provided show contrast filling the intra-and extrahepatic biliary ductal systems. No distinct intraluminal filling defects are seen. There is no evidence of obstruction. Contrast empties into the small bowel as expected. Please note, interpreting radiologist was not present during the procedure. IMPRESSION: 1. Intraoperative cholangiogram as described above. Dictated by: Dictated on workstation # [id number]
--- NOTE | 2019-02-06 17:22 | Progress Note-Post Operative ---
Post-Operative Progess Note Surgeon (s)/Automatic Furnace Operator (s) Surgeon MARIA D LEDESMA DO Automatic Furnace Operator: Dr. Angeles Pre-Operative Diagnosis biliary dyskinesia, umbilical hernia Post-Operative Diagnosis same Procedure & Operative Findings Date of Procedure 02/06/19 Procedure Performed/Findings lap janice c ioc and primary umbilical hernia repair Anesthesia Type gen Estimated Blood Loss Estimated blood loss (mL): min Specimens/Packing Specimens Removed gallbladder MARIA D LEDESMA DO Feb 06, 2019 17:22
[2019-02-06] MEDS ORDERED: ACHD5005 PO (17:24)
[2019-02-06] MEDS ORDERED: DOCU-143 PO (17:24)
--- NOTE | 2019-02-06 17:26 | Discharge Inst-Simple/Standard ---
Discharge Inst-Standard Discharge Medications New, Converted or Re-Newed RX: RX on Chart Patient Instructions/Follow Up Plan of Care/Instructions/FU: 2-3 weeks Tai Activity as Tolerated: No Discharge Diet: Regular Diet Other Inst to Patient Follow up Appt: Make appointment for 2 weeks. Instructions: No lifting greater than 10 pounds. No strenuous activity. May shower in 24 hours, no tub bath or soaking. Use incentive spirometer at home as directed. No Smoking Skin/Wound Care: May remove bandages in 48 hours. You have special glue over incisions it will f all off on its own. Symptoms to Report: Appetite Changes, Extremity Discoloration, Numbness/Tingling, Swelling Increased, Bleeding Excessive, Eyesight Changes, Pain Increased, Urine Color Change, Constipation(Persistent), Fever over 101 degree F, Pain/Pressure in chest, Urinating Difficulty, Cough Up/Vomit Blood, Heart Beat Irreg/Pounding, Pain/Pressure in jaw, Vaginal Bleeding Increase, Cramps in feet or legs, Lightheadedness, Pain/Pressure in shoulder, Diarrhea(Persistent), Memory Changes Suddenly, Questions/Concerns, Weight gain consecutive days, Dizziness/Fainting, Nausea/Vomiting, Shortness of Breath, Weight gain over 2 pounds. If eyes or skin turn yellow notify physician. If questions or concerns contact your physician Or seek help at emergency department. MARIA D LEDESMA DO Feb 06, 2019 17:26
[2019-02-06] MEDS ORDERED: HYDROcodone/APAP 5 MG/325 MG (LORTAB) TAB PO ONE (18:45)
--- NOTE | 2019-02-07 04:16 | OPERATIVE REPORT ---
DATE OF SERVICE: 02/06/2019 PREOPERATIVE DIAGNOSIS: Biliary dyskinesia and umbilical hernia. POSTOPERATIVE DIAGNOSIS: Biliary dyskinesia and umbilical hernia. PROCEDURE: Laparoscopic cholecystectomy with intraoperative cholangiogram and open umbilical primary hernia repair. SURGEON: Maria D Lujan DO SENIOR PRINCIPAL: Dr. Angeles, assisted in retraction, dissection and closure. ANESTHESIA: General. ESTIMATED BLOOD LOSS: Minimal. COMPLICATIONS: None. INDICATIONS: The patient is a 43-year-old male with biliary dyskinesia and umbilical hernia. The patient understands risks and benefits of procedure and wished to proceed with procedure. Consent was signed in the chart. PROCEDURE IN DETAIL: The patient was taken to the operating suite, was prepped and draped in sterile fashion. Surgical pause was performed. Incision was made just around the umbilicus and continued to be dissected around releasing the umbilical stalk and the hernia defect was then opened and a balloon trocar was inserted. Pneumoperitoneum was achieved. Under direct visualization of the laparoscope, a 5 mm trocar was placed in subxiphoid region and two 5 mm trocars were placed in the right upper quadrant. Gallbladder was grasped and elevated. Multiple adhesions to the gallbladder were present, which were taken down with both blunt and cautery dissection. The cystic duct and cystic artery were then dissected out. Clips were placed on the proximal and distal portion of the cystic artery and the distal portion of the cystic duct. The cystic duct was then partially transected. Arrow catheter was inserted and cholangiogram was performed. There were no filling defects. Contrast made its way into the duodenum without difficulty. The catheter was then removed. Clips were placed on the proximal portion of the cystic duct. The duct and artery were then transected. Hook cautery was used to dissect the gallbladder from the gallbladder fossa achieving hemostasis. Once removed, the gallbladder was placed in an Endobag and removed through a 12 mm trocar site. The abdomen was then irrigated with copious amounts of irrigation and suction. Hemostasis was achieved. The abdomen was then desufflated, the trocars were removed. The attention was then placed onto the hernia defect, which the fascia was then grasped and mobilized. The hernia defect was then closed in a simple interrupted fashion with multiple sutures closing the hernia defect. Before closing the skin, the umbilical stalk was then secured down to the fascia. Copious amounts of irrigation was used and suctioned. The skin was then closed using 4-0 Monocryl in a subcuticular fashion. The other skin incisions were closed using 4-0 Monocryl in subcuticular fashion. The areas were then washed and dried. Skin Affix was placed over the incisions. Sterile bandages were applied. The patient tolerated procedure well without any complications, taken to recovery room in stable condition. Job ID: [id number] DocumentID: [id number] Dictated Date: 02/06/2019 21:56:10 Ward Secretary Date: 02/07/2019 04:15:31 Dictated By: MARIA D LUJAN DO
== END 2019-02-06 19:40 | disposition home or self-care (01) ==
LOC: SDC 11:50
PROVIDERS: ATTEND Surgery
DX: K81.1 Chronic cholecystitis (principal); K42.9 Umbilical hernia without obstruction or gangrene; K82.8 Other specified diseases of gallbladder; K21.9 Gastro-esophageal reflux disease without esophagitis; I10 Essential (primary) hypertension; F17.210 Nicotine dependence, cigarettes, uncomplicated; F32.9 Major depressive disorder, single episode, unspecified; F50.2 Bulimia nervosa; E66.9 Obesity, unspecified; Z68.35 Body mass index [BMI] 35.0-35.9, adult; Z88.5 Allergy status to narcotic agent; Z79.899 Other long term (current) drug therapy; Z79.84 Long term (current) use of oral hypoglycemic drugs; Z82.61 Family history of arthritis; Z84.89 Family history of other specified conditions; Z81.0 Family history of intellectual disabilities; Z83.6 Family history of other diseases of the respiratory system; Z82.49 Family history of ischemic heart disease and other diseases of the circulatory system; Z81.1 Family history of alcohol abuse and dependence; Z81.8 Family history of other mental and behavioral disorders; Z82.69 Family history of other diseases of the musculoskeletal system and connective tissue
CPT/HCPCS: 36415; 85025; 87081; 88304

== ENCOUNTER 2019-03-29 18:45 | Emergency (ER) | payer OTHER ==
[~2019-03-29] VITALS: Ht 182.8 cm; Wt 127.3 kg
[~2019-03-29 18:45] MED LIST changes: +DOCU-143 PO
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
--- NOTE | 2019-03-29 19:20 | Diagnostic Imaging Report ---
INDICATION: Injury to head Noncontrast brain CT is performed. There were no extra-axial fluid collections. No intracranial hemorrhage. No intracranial mass or mass effect. No midline shift. The ventricles are normal in size and position. There were no focal parenchymal abnormalities in the brain. There is no calvarial fracture. There is near complete opacification of the right maxillary sinus with prominent retention cyst or polyp. IMPRESSION: No acute intracranial abnormality or calvarial fracture. Dictated by: Dictated on workstation # [id number]
[2019-03-29 19:26] VITALS: BP 136/77
== END 2019-03-29 19:26 | disposition home or self-care (01) ==
LOC: EDUNIT# 18:45 → ER 18:46
DX: S01.01XA Laceration without foreign body of scalp, initial encounter (principal); I10 Essential (primary) hypertension; F43.10 Post-traumatic stress disorder, unspecified; F41.9 Anxiety disorder, unspecified; K21.9 Gastro-esophageal reflux disease without esophagitis; F17.210 Nicotine dependence, cigarettes, uncomplicated; R40.2142 Coma scale, eyes open, spontaneous, at arrival to emergency department; R40.2252 Coma scale, best verbal response, oriented, at arrival to emergency department; R40.2362 Coma scale, best motor response, obeys commands, at arrival to emergency department; Z87.442 Personal history of urinary calculi; Z88.5 Allergy status to narcotic agent; Z82.49 Family history of ischemic heart disease and other diseases of the circulatory system; W22.01XA Walked into wall, initial encounter
CPT/HCPCS: 12001; 12041; 12052; 70450

== ENCOUNTER 2019-04-05 12:41 | Emergency (ER) | payer OTHER ==
--- NOTE | 2019-04-05 13:03 | NUR ---
REGISTRATION REPORTS PT HAS LEFT.
== END 2019-04-05 13:03 | disposition left against medical advice (07) ==
LOC: ER 12:41
DX: S01.81XD Laceration without foreign body of other part of head, subsequent encounter (principal); X58.XXXD Exposure to other specified factors, subsequent encounter

== ENCOUNTER 2021-02-16 11:36 | Emergency (ER) | payer OTHER ==
[~2021-02-16] VITALS: Ht 177 cm; Wt 145.0 kg
[~2021-02-16 11:36] MED LIST changes: +AMLO-251 PO; -AMLO10TA7 PO; -LISI-552 PO; +LISI20TA26 PO; +MIRT-68 PO; -MIRT15TA6 PO; +NABU-95 PO; -NABU750T PO; +NF-ZOL12.5 PO; -OMEP20CA13 PO; +OMEP20CA18 PO; -TAMS0.4C98 PO; +TMSL.4C PO; -ZOLP12.546 PO
--- NOTE | 2021-02-16 14:26 | ED Abdominal Pain ---
General Chief Complaint: Abdominal/GI Problems Stated Complaint: WEAKNESS, ABD PAIN, RLQ PAIN Nursing Triage Note: ARRIVED VIA AMB IN TRIAGE WITH COMPLAINTS OF ABD PAIN X1 WEEK ALONG WITH A HEADACHE. History of Present Illness Date Seen by Provider: Feb 16, 2021 Time Seen by Provider: 14:10 Initial Comments Terrance is a 45-year-old who presents to the emergency room from home with a chief complaint of epigastric abdominal pain. He complains of generalized weakness going on for the last 7 days. He states that he had a mild headache earlier today. Denies any fevers or chills, cough or congestion, Covid related concerns. He is not vaccinated. 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 He states his last drink was last . He states he has had significantly decreased appetite over the course of the last week, drinking chocolate milk and water trying to stay hydrated and having a banana and some bland foods trying to keep some nutrition down. He states every time he eats he gets a little nauseated. Patient states he had a cholecystectomy about 2 years ago. He is also had an abdominal hernia repair. No other intra-abdominal surgeries. He denies any diarrhea, black or bloody stools. No urinary complaints. No chest pain. No sick contacts that he is aware of. Nothing really makes his pain any better and he states that he has not really tried anything to make it better. Eating makes it worse. He has had intermittent nausea. All other review of systems reviewed and negative except as stated. Timing/Duration: 6-7 Days Severity/Quality: Moderate, Aching, Burning Location: Epigastric Radiation: No Radiation Activities at Onset: None Associated Symptoms: Weakness Allergies and Home Medications Allergies Coded Allergies: codeine (Unverified Allergy, Mild, UPSET STOMACH, 05/04/10) Home Medications Amlodipine Besylate 10 Mg Tablet, 10 MG PO DAILY, (Reported) Amlodipine Besylate 10 Mg Tablet, 10 MG PO DAILY Prescribed by: JOSE CHIN on 02/16/21 1608 Desvenlafaxine Succinate 50 Mg Tab.er.24h, 50 MG PO DAILY, (Reported) Docusate Sodium 100 Mg Capsule, 100 MG PO BID Prescribed by: MARIA D LEDESMA on 02/06/19 1724 Gabapentin 300 Mg Capsule, 300 MG PO DAILY PRN for ANXIETY, (Reported) Hydrocodone Bit/Acetaminophen 1 Tab Tab, 1-2 TAB PO Q6H PRN for PAIN-MODERATE Prescribed by: MARIA D LEDESMA on 02/06/19 1724 Lisinopril 20 Mg Tablet, 20 MG PO DAILY, (Reported) Lisinopril 20 Mg Tablet, 20 MG PO DAILY Prescribed by: JOSE CHIN on 02/16/21 1608 Mirtazapine 15 Mg Tablet, 15 MG PO HS, (Reported) Nabumetone 750 Mg Tablet, 750 MG PO BID, (Reported) Omeprazole 20 Mg Capsule.dr, 20 MG PO DAILY, (Reported) Tamsulosin HCl 0.4 Mg Cap, 0.4 MG PO DAILY, (Reported) Zolpidem Tartrate 12.5 Mg Tab.mphase, 12.5 MG PO HS, (Reported) Patient Home Medication List Home Medication List Reviewed: Yes Review of Systems Review of Systems Constitutional: see HPI Respiratory: No Symptoms Reported Cardiovascular: No Symptoms Reported Gastrointestinal: Abdominal Pain, Nausea, Poor Appetite Genitourinary: No Symptoms Reported Musculoskeletal: no symptoms reported Skin: no symptoms reported Psychiatric/Neurological: No Symptoms Reported All Other Systems Reviewed Negative Unless Noted: Yes Past Adoiqqc-Bkdgsz-Ambngo Hx Patient Social History Smoking Status: Current Everyday Smoker Substance use?: No Substance frequency: Several times a month Immunizations Up To Date Tetanus Booster (TDap): Less than 5yrs Seasonal Allergies Seasonal Allergies: No Past Medical History Surgeries: Yes (right hand surgery/left knee arthroscopy, KIDNEY STONES) Orthopedic Respiratory: No Pneumonia Currently Using CPAP: No Currently Using BIPAP: No Cardiac: Yes Hypertension Neurological: No Reproductive Disorders: No Sexually Transmitted Disease: No HIV/AIDS: No Genitourinary: Yes Prostate Problems, Kidney Stones Gastrointestinal: Yes Gastroesophageal Reflux, Chronic Diarrhea, Ulcer, Gall Bladder Disease Musculoskeletal: Yes (BROKEN ARM ) Chronic Back Pain, Fractures Endocrine: No HEENT: Yes (GLASSES) Loss of Vision: Denies Hearing Impairment: Denies Cancer: No Psychosocial: Yes Anxiety, PTSD Integumentary: No Blood Disorders: No Adverse Reaction/Blood Tranf: No (N/A) Family Medical History Hypertension 19 MOTHER G8 BROTHER G8 BROTHER G8 BROTHER Neoplasm 19 MOTHER No Pertinent Family Hx Physical Exam Vital Signs Vital Signs - First Documented 02/16/21 12:53 Temp 37.0 Pulse 117 Resp 16 B/P (MAP) 190/127 (148) Pulse Ox 96 O2 Delivery Room Air Capillary Refill : Less Than 3 Seconds Height/Weight/BMI Height: 6'0.00" Weight: 258lbs. 8.0oz. 117.938623hq; 46.00 BMI Method:Stated General Appearance: WD/WN, no apparent distress HEENT: PERRL/EOMI Respiratory: lungs clear, normal breath sounds, no respiratory distress, no accessory muscle use Cardiovascular: regular rate, rhythm Gastrointestinal: normal bowel sounds, soft, other (Morbid obesity. I am unable to palpate a liver margin. Patient has mild tenderness to the epigastrium and bilateral upper quadrants. No rebound, involuntary guarding.) Extremities: normal inspection Neurologic/Psychiatric: no motor/sensory deficits, alert, normal mood/affect, oriented x 3 Skin: normal color, warm/dry Progress/Results/Core Measures Results/Orders Lab Results Laboratory Tests Test 02/16/21 14:14 02/16/21 14:32 Range/Units White Blood Count 11.8 H 4.3-11.0 10^3/uL Red Blood Count 5.79 H 4.30-5.52 10^6/uL Hemoglobin 18.8 H 13.3-17.7 g/dL Hematocrit 56 H 40-54 % Mean Corpuscular Volume 96 80-99 fL Mean Corpuscular Hemoglobin 33 25-34 pg Mean Corpuscular Hemoglobin Concent 34 32-36 g/dL Red Cell Distribution Width 12.1 10.0-14.5 % Platelet Count 298 130-400 10^3/uL Mean Platelet Volume 9.4 9.0-12.2 fL Immature Granulocyte % (Auto) 0 % Neutrophils (%) (Auto) 75 42-75 % Lymphocytes (%) (Auto) 18 12-44 % Monocytes (%) (Auto) 7 0-12 % Eosinophils (%) (Auto) 0 0-10 % Basophils (%) (Auto) 1 0-10 % Neutrophils # (Auto) 8.8 H 1.8-7.8 10^3/uL Lymphocytes # (Auto) 2.1 1.0-4.0 10^3/uL Monocytes # (Auto) 0.8 0.0-1.0 10^3/uL Eosinophils # (Auto) 0.0 0.0-0.3 10^3/uL Basophils # (Auto) 0.1 0.0-0.1 10^3/uL Immature Granulocyte # (Auto) 0.0 0.0-0.1 10^3/uL Sodium Level 139 135-145 MMOL/L Potassium Level 4.4 3.6-5.0 MMOL/L Chloride Level 104 98-107 MMOL/L Carbon Dioxide Level 23 21-32 MMOL/L Anion Gap 12 5-14 MMOL/L Blood Urea Nitrogen 14 7-18 MG/DL Creatinine 1.23 0.60-1.30 MG/DL Estimat Glomerular Filtration Rate 63 BUN/Creatinine Ratio 11 Glucose Level 106 H 70-105 MG/DL Calcium Level 10.4 H 8.5-10.1 MG/DL Corrected Calcium 8.5-10.1 MG/DL Total Bilirubin 0.8 0.1-1.0 MG/DL Aspartate Amino Transf (AST/SGOT) 72 H 5-34 U/L Alanine Aminotransferase (ALT/SGPT) 134 H 0-55 U/L Alkaline Phosphatase 106 40-136 U/L Total Protein 8.6 H 6.4-8.2 GM/DL Albumin 4.9 H 3.2-4.5 GM/DL Lipase 34 8-78 U/L SARS-CoV-2 RNA (RT-PCR) Not Detected Not Detecte My Orders Orders - JOSE CHIN MD Cbc With Automated Diff (02/16/21 14:20) Comprehensive Metabolic Panel (02/16/21 14:20) Ed Iv/Invasive Line Start (02/16/21 14:20) Covid 19 Inhouse Test (02/16/21 14:20) Ns Iv 1000 Ml (Sodium Chloride 0.9%) (02/16/21 14:30) Antacid Suspension (Mylanta Suspension (02/16/21 14:30) Lidocaine 2% Viscous 15 Ml (Xylocaine Vi (02/16/21 14:30) Sucralfate Tablet (Carafate Tablet) (02/16/21 14:30) Lipase (02/16/21 14:26) Medications Given in ED Current Medications Medications Dose Ordered Sig/Augustin Route Start Time Stop Time Status Last Admin Dose Admin Al Hydrox/Mg Hydrox/Simethicone 30 ml ONCE ONCE PO 02/16/21 14:30 8/25/21 14:31 DC 02/16/21 14:32 30 ML Lidocaine HCl 5 ml ONCE ONCE PO 02/16/21 14:30 02/16/21 14:31 DC 02/16/21 14:32 5 ML Sucralfate 1 gm ONCE ONCE PO 02/16/21 14:30 02/16/21 14:31 DC 02/16/21 14:30 1 GM Vital Signs/I&O 02/16/21 12:53 Temp 37.0 Pulse 117 Resp 16 B/P (MAP) 190/127 (148) Pulse Ox 96 O2 Delivery Room Air Blood Pressure Mean: 148 Progress Progress Note : Time: 16:00 Progress Note Patient seen and examined, 45-year-old with epigastric abdominal discomfort. Evaluation today includes a physical exam, CBC, Chem-12 and lipase, labs have been reviewed and are unremarkable. Abdominal exam is nonsurgical. No involuntary guarding or rebound, no specific point tenderness. Patient states he felt much improvement with a GI cocktail and IV fluids. Blood pressure and heart rate have decreased somewhat. Patient is noted to have been on lisinopril and amlodipine in the past and I will restart these medications. Patient is recommended to take an lqvp-xer-tndvtlx acid extrusion utility worker such as Pepcid or Prilosec. He verbalizes understanding and is agreeable with the plan of care. Patient is given good return precautions. He states that he has a follow-up appointment with his primary care physician on 23 February. All questions are sought and answered. Patient is stable for discharge. 1632 On discharge the patient's systolic and diastolic blood pressures were noted to be exceedingly high greater than 200/135. Patient remained asymptomatic. No concerns for acute coronary syndrome, acute renal failure, pulmonary edema, stroke. Patient is treated with 20 mg of labetalol IV. Monitored for short- term, pending discharge. Departure Impression Primary Impression: Abdominal pain Qualified Codes: R10.13 - Epigastric pain Additional Impression: High blood pressure Qualified Codes: I10 - Essential (primary) hypertension Disposition: HOME, SELF-CARE Condition: Stable Departure-Patient Inst. Decision time for Depature: 16:02 Referrals: [facility] (PCP) Primary Care Physician CATE MORRIS (Family) Primary Care Physician Patient Instructions: Abdominal Pain, Adult ED Add. Discharge Instructions: Please restart your blood pressure medicines, lisinopril and amlodipine. Take these as directed. Start taking an nfbs-luh-cdgkent acid extrusion utility worker such as Prilosec OTC. You can take this daily. This may take several days to actually start working to help your heartburn symptoms. You can also take Maalox as needed for heartburn type symptoms. Come back to the emergency room for any worsening pain especially with fever, vomiting, diarrhea with black or bloody stools or any other emergent concerning symptoms. Scripts Amlodipine Besylate (Amlodipine Besylate) 10 Mg Tablet 10 MG PO DAILY for 14 Days, #14 TAB Prov: JOSE CHIN MD 02/16/21 Lisinopril (Lisinopril) 20 Mg Tablet 20 MG PO DAILY for 14 Days, #14 TAB Prov: JOSE CHIN MD 02/16/21 JOSE CHIN MD Feb 16, 2021 14:25
[2021-02-16 14:27] LABS: BASOPHILS # (AUTO) 0.1 10^3/uL (0.0-0.1); BASOPHILS % (AUTO) 1 % (0-10); EOSINOPHILS % (AUTO) 0 % (0-10); HEMATOCRIT 56 % (40-54); HEMOGLOBIN 18.8 g/dL (13.3-17.7); LYMPHOCYTES # (AUTO) 2.1 10^3/uL (1.0-4.0); LYMPHOCYTES % (AUTO) 18 % (12-44); MEAN CORPUSCULAR HEMOGLOBIN 33 pg (25-34); MEAN CORPUSCULAR HGB CONC 34 g/dL (32-36); MEAN CORPUSCULAR VOLUME 96 fL (80-99); MEAN PLATELET VOLUME 9.4 fL (9.0-12.2); MONOCYTES # (AUTO) 0.8 10^3/uL (0.0-1.0); MONOCYTES % (AUTO) 7 % (0-12); NEUTROPHILS # (AUTO) 8.8 10^3/uL (1.8-7.8); NEUTROPHILS % (AUTO) 75 % (42-75); PLATELET COUNT 298 10^3/uL (130-400); WHITE BLOOD COUNT 11.8 10^3/uL (4.3-11.0)
[2021-02-16] MEDS ORDERED: LIDOCAINE 2% VISCOUS 15 ML UDC PO ONE (14:30)
[2021-02-16] MEDS ORDERED: SUCRALFATE 1 GM (CARAFATE) TAB PO ONE (14:30)
[2021-02-16] MEDS ORDERED: ANTACID SUSP 30 ML UDC (MYLANTA) PO ONE (14:30)
[2021-02-16] MEDS ORDERED: NS IV 1000 ML 1,000 ML IV SCH (14:30)
[2021-02-16 14:35] LABS: ALBUMIN 4.9 GM/DL (3.2-4.5)
[2021-02-16 14:36] LABS: CHLORIDE 104 MMOL/L (98-107); POTASSIUM 4.4 MMOL/L (3.6-5.0); SODIUM 139 MMOL/L (135-145)
[2021-02-16 14:37] LABS: CALCIUM 10.4 MG/DL (8.5-10.1)
[2021-02-16 14:38] LABS: GLUCOSE 106 MG/DL (70-105); TOTAL PROTEIN 8.6 GM/DL (6.4-8.2)
[2021-02-16 14:39] LABS: CARBON DIOXIDE 23 MMOL/L (21-32)
[2021-02-16 14:40] LABS: BILIRUBIN,TOTAL 0.8 MG/DL (0.1-1.0)
[2021-02-16 14:41] LABS: ALKALINE PHOSPHATASE 106 U/L (40-136)
[2021-02-16 14:42] LABS: CREATININE SERUM 1.23 MG/DL (0.60-1.30); GFR ESTIMATED 63
[2021-02-16 14:43] LABS: BUN/CREATININE RATIO 11
[2021-02-16 14:45] LABS: ALANINE AMINOTRANSFERASE 134 U/L (0-55)
[2021-02-16] MEDS ORDERED: LISI20TA26 PO (16:08)
[2021-02-16] MEDS ORDERED: AMLO-251 PO (16:08)
[2021-02-16] MEDS ORDERED: LABETALOL HCL 20 MG/4 ML VIAL IV ONE (16:45)
[2021-02-16 16:59] VITALS: BP 160/127
== END 2021-02-16 17:07 | disposition home or self-care (01) ==
LOC: EDUNIT# 11:36 → ER 11:38
DX: R10.13 Epigastric pain (principal); I10 Essential (primary) hypertension; K21.9 Gastro-esophageal reflux disease without esophagitis; E66.01 Morbid (severe) obesity due to excess calories; G89.29 Other chronic pain; M54.9 Dorsalgia, unspecified; F41.9 Anxiety disorder, unspecified; F17.200 Nicotine dependence, unspecified, uncomplicated; Z20.822 Contact with and (suspected) exposure to COVID-19; Z68.42 Body mass index [BMI] 45.0-49.9, adult; Z79.899 Other long term (current) drug therapy; Z79.891 Long term (current) use of opiate analgesic
CPT/HCPCS: 36415; 80053; 83690; 85025; 87636

== ENCOUNTER 2021-03-07 08:13 | Emergency (ER) | payer OTHER ==
[~2021-03-07] VITALS: Ht 180.3 cm; Wt 145.0 kg
[2021-03-07 09:05] LABS: BASOPHILS % (AUTO) 0 % (0-10); EOSINOPHILS # (AUTO) 0.1 10^3/uL (0.0-0.3); EOSINOPHILS % (AUTO) 1 % (0-10); HEMATOCRIT 44 % (40-54); HEMOGLOBIN 15.4 g/dL (13.3-17.7); LYMPHOCYTES # (AUTO) 1.7 10^3/uL (1.0-4.0); LYMPHOCYTES % (AUTO) 18 % (12-44); MEAN CORPUSCULAR HEMOGLOBIN 33 pg (25-34); MEAN CORPUSCULAR HGB CONC 35 g/dL (32-36); MEAN CORPUSCULAR VOLUME 94 fL (80-99); MEAN PLATELET VOLUME 9.4 fL (9.0-12.2); MONOCYTES # (AUTO) 0.8 10^3/uL (0.0-1.0); MONOCYTES % (AUTO) 8 % (0-12); NEUTROPHILS # (AUTO) 6.9 10^3/uL (1.8-7.8); NEUTROPHILS % (AUTO) 73 % (42-75); PLATELET COUNT 234 10^3/uL (130-400); WHITE BLOOD COUNT 9.4 10^3/uL (4.3-11.0)
[2021-03-07 09:20] LABS: ALBUMIN 4.4 GM/DL (3.2-4.5)
[2021-03-07 09:21] LABS: CALCIUM 9.7 MG/DL (8.5-10.1)
[2021-03-07 09:21] LABS: BILIRUBIN,URINE NEGATIVE (NEGATIVE); CLARITY,URINE CLEAR; COLOR,URINE YELLOW; GLUCOSE, URINE (UA) NEGATIVE (NEGATIVE); KETONES,URINE TRACE (NEGATIVE); LEUKOCYTE ESTERASE ,URINE NEGATIVE (NEGATIVE); NITRITE,URINE NEGATIVE (NEGATIVE); PROTEIN,URINE TRACE (NEGATIVE)
[2021-03-07 09:22] LABS: TOTAL PROTEIN 7.4 GM/DL (6.4-8.2)
[2021-03-07 09:24] LABS: BILIRUBIN,TOTAL 0.8 MG/DL (0.1-1.0)
[2021-03-07] MEDS ORDERED: FAMOTIDINE 20MG/2ML IV (PEPCID) IV STA (09:35)
--- NOTE | 2021-03-07 09:36 | ED GI ---
General Chief Complaint: Abdominal/GI Problems Stated Complaint: ABD PAIN,DIFFICULTY EATING FATIGUE Nursing Triage Note: C/O INCREASED BELLY PAIN AFTER EATING. PATIENT STATES HE QUIT SMOKING AND DRINKING A MONTH OR TWO AGO, STATES HE FEELS DRAINED. Source of Information: Patient Exam Limitations: No Limitations (LISA PORTILLO) History of Present Illness Date Seen by Provider: Mar 07, 2021 Time Seen by Provider: 09:20 Initial Comments CC: Abdominal Pain Patient was seen on 02/[address] Chin for similar symptoms of abdominal pain. Patient states during this visit he received a GI cocktail which improved his symptoms significantly. Overall, Patient is a 45 yo male that has been having abdominal pain now for 3-4 weeks. The severity of the pain has not gotten worse since 02/16 and reports that the omeprazole has been helping. Pain is located in the epigastric region, and travels to his RUQ. Pain comes and goes and is better with meals. Patent states he has had some nausea. diarrhea, and fatigue. Timing/Duration: Other (3-4 weeks) Severity/Quality: Mild, Dull Location: Epigastric Radiation: RUQ Activities at Onset: Other (In between meals) Modifying Factors: Improves With Antacids, Improves With Eating Associated Symptoms: No Chest Pain, No Diaphoresis, No Fever/Chills; Fatigue, Nausea/Vomiting (No vomiting); No Rash, No Shortness of Air, No Weakness (LISA PORTILLO) Initial Comments Pain is worse when he lays on his back. He says in the past GI cocktail helped him. (ELYSSA MORRIS) Allergies and Home Medications Allergies Coded Allergies: codeine (Unverified Allergy, Mild, UPSET STOMACH, 05/04/10) Patient Home Medication List Home Medication List Reviewed: Yes (ELYSSA MORRIS) Amlodipine Besylate (Amlodipine Besylate) 10 Mg Tablet, 10 MG PO DAILY, (Reported) Entered as Reported by: MARIE MONTOYA on 01/31/19 1006 Amlodipine Besylate (Amlodipine Besylate) 10 Mg Tablet, 10 MG PO DAILY Prescribed by: JOSE CHIN on 02/16/21 1608 Desvenlafaxine Succinate (Pristiq ER) 50 Mg Tab.er.24h, 50 MG PO DAILY, (Repor teresa) Entered as Reported by: MARIE MONTOYA on 01/31/19 100 Docusate Sodium (Colace) 100 Mg Capsule, 100 MG PO BID Prescribed by: MARIA D LEDESMA on 02/06/19 1724 Gabapentin (Gabapentin) 300 Mg Capsule, 300 MG PO DAILY PRN for ANXIETY, (Reported) Entered as Reported by: MARIE MONTOYA on 01/31/19 1006 Hydrocodone Bit/Acetaminophen (Lortab 5 Mg Tablet) 1 Tab Tab, 1-2 TAB PO Q6H PRN for PAIN-MODERATE Prescribed by: MARIA D LEDESMA on 02/06/19 1724 Lisinopril (Lisinopril) 20 Mg Tablet, 20 MG PO DAILY, (Reported) Entered as Reported by: MARIE MONTOYA on 01/31/19 100 Lisinopril (Lisinopril) 20 Mg Tablet, 20 MG PO DAILY Prescribed by: JOSE CHIN on 02/16/21 1608 Mirtazapine (Mirtazapine) 15 Mg Tablet, 15 MG PO HS, (Reported) Entered as Reported by: MARIE MONTOYA on 01/31/19 100 Nabumetone (Nabumetone) 750 Mg Tablet, 750 MG PO BID, (Reported) Entered as Reported by: MARIE MONTOYA on 01/31/19 100 Omeprazole (Omeprazole) 20 Mg Capsule.dr, 20 MG PO DAILY, (Reported) Entered as Reported by: MARIE MONTOYA on 01/31/19 100 Sucralfate (Carafate) 1 Gm Tablet, 1 GM PO QIDACHS Prescribed by: ELYSSA MORRIS on 03/07/21 1050 Tamsulosin HCl (Flomax) 0.4 Mg Cap, 0.4 MG PO DAILY, (Reported) Entered as Reported by: MARIE MONTOYA on 01/31/19 100 Zolpidem Tartrate (Zolpidem Tartrate ER) 12.5 Mg Tab.mphase, 12.5 MG PO HS, (Reported) Entered as Reported by: MARIE MONTOYA on 01/31/19 100 Review of Systems Review of Systems Constitutional: No chills, No fever, No weakness Respiratory: Denies Cough, Denies Shortness of Air Cardiovascular: Denies Chest Pain, Denies Palpitations Gastrointestinal: Abdominal Pain, Diarrhea, Nausea, Poor Appetite; Denies Rectal Bleeding, Denies Vomiting Genitourinary: Denies Burning, Denies Frequency, Denies Urgency Musculoskeletal: No muscle pain, No muscle weakness Skin: No lesions, No rash Psychiatric/Neurological: Anxiety, Depressed (LISA PORTILLO) Past Fbunnyg-Vhzbqv-Pipdiv Hx Patient Social History Tobacco Use?: No Use of E-Cig and/or Vaping dev: No Substance use?: No Alcohol Use?: No Pt feels they are or have been: No (LISA PORTILLO) Immunizations Up To Date Tetanus Booster (TDap): Less than 5yrs Influenza Vaccine Up-to-Date: No; Not Current (LISA PORTILLO) Seasonal Allergies Seasonal Allergies: No (LISA PORTILLO) Past Medical History Surgeries: Yes (right hand surgery/left knee arthroscopy, KIDNEY STONES) Orthopedic Respiratory: No Pneumonia Currently Using CPAP: No Currently Using BIPAP: No Cardiac: Yes Hypertension Neurological: No Reproductive Disorders: No Sexually Transmitted Disease: No HIV/AIDS: No Genitourinary: Yes Prostate Problems, Kidney Stones Gastrointestinal: Yes Gastroesophageal Reflux, Chronic Diarrhea, Ulcer, Gall Bladder Disease Musculoskeletal: Yes (BROKEN ARM ) Chronic Back Pain, Fractures Endocrine: No HEENT: Yes (GLASSES) Loss of Vision: Denies Hearing Impairment: Denies Cancer: No Psychosocial: Yes Anxiety, PTSD Integumentary: No Blood Disorders: No Adverse Reaction/Blood Tranf: No (N/A) (LISA PORTILLO) Family Medical History Hypertension 19 MOTHER G8 BROTHER G8 BROTHER G8 BROTHER Neoplasm 19 MOTHER No Pertinent Family Hx (LISA PORTILLO) Physical Exam Vital Signs Vital Signs - First Documented 03/07/21 08:55 Temp 36.7 Pulse 109 Resp 20 B/P (MAP) 142/105 (117) Pulse Ox 98 O2 Delivery Room Air (ELYSSA MORRIS) Vital Signs Capillary Refill : Less Than 3 Seconds (LISA PORTILLO) Height/Weight/BMI Height: 6'0.00" Weight: 258lbs. 8.0oz. 117.874192lf; 44.00 BMI Method:Stated General Appearance: WD/WN, no apparent distress Respiratory: chest non-tender, lungs clear, normal breath sounds, no respiratory distress Cardiovascular: regular rate, rhythm, no edema, no murmur Peripheral Pulses: 2+ Radial Pulses (R), 2+ Radial Pulses (L) Gastrointestinal: soft, distended, tenderness (epigastric region) Neurologic/Psychiatric: alert, oriented x 3 Skin: normal color, warm/dry, other (abdominal incisions consistent with S/P cholecystectomy) (LISA PORTILLO) Progress/Results/Core Measures Results/Orders Lab Results Laboratory Tests Test 03/07/21 08:55 03/07/21 09:05 Range/Units White Blood Count 9.4 4.3-11.0 10^3/uL Red Blood Count 4.73 4.30-5.52 10^6/uL Hemoglobin 15.4 13.3-17.7 g/dL Hematocrit 44 40-54 % Mean Corpuscular Volume 94 80-99 fL Mean Corpuscular Hemoglobin 33 25-34 pg Mean Corpuscular Hemoglobin Concent 35 32-36 g/dL Red Cell Distribution Width 11.7 10.0-14.5 % Platelet Count 234 130-400 10^3/uL Mean Platelet Volume 9.4 9.0-12.2 fL Immature Granulocyte % (Auto) 0 % Neutrophils (%) (Auto) 73 42-75 % Lymphocytes (%) (Auto) 18 12-44 % Monocytes (%) (Auto) 8 0-12 % Eosinophils (%) (Auto) 1 0-10 % Basophils (%) (Auto) 0 0-10 % Neutrophils # (Auto) 6.9 1.8-7.8 10^3/uL Lymphocytes # (Auto) 1.7 1.0-4.0 10^3/uL Monocytes # (Auto) 0.8 0.0-1.0 10^3/uL Eosinophils # (Auto) 0.1 0.0-0.3 10^3/uL Basophils # (Auto) 0.0 0.0-0.1 10^3/uL Immature Granulocyte # (Auto) 0.0 0.0-0.1 10^3/uL Sodium Level 137 135-145 MMOL/L Potassium Level 4.0 3.6-5.0 MMOL/L Chloride Level 104 98-107 MMOL/L Carbon Dioxide Level 24 21-32 MMOL/L Anion Gap 9 5-14 MMOL/L Blood Urea Nitrogen 16 7-18 MG/DL Creatinine 1.00 0.60-1.30 MG/DL Estimat Glomerular Filtration Rate 80 BUN/Creatinine Ratio 16 Glucose Level 106 H 70-105 MG/DL Calcium Level 9.7 8.5-10.1 MG/DL Corrected Calcium 9.4 8.5-10.1 MG/DL Total Bilirubin 0.8 0.1-1.0 MG/DL Aspartate Amino Transf (AST/SGOT) 55 H 5-34 U/L Alanine Aminotransferase (ALT/SGPT) 143 H 0-55 U/L Alkaline Phosphatase 95 40-136 U/L C-Reactive Protein High Sensitivity 0.93 H 0.00-0.50 MG/DL Total Protein 7.4 6.4-8.2 GM/DL Albumin 4.4 3.2-4.5 GM/DL Lipase 30 8-78 U/L Urine Color YELLOW Urine Clarity CLEAR Urine pH 6.0 5-9 Urine Specific [place] 1.025 H 1.016-1.022 Urine Protein TRACE H NEGATIVE Urine Glucose (UA) NEGATIVE NEGATIVE Urine Ketones TRACE H NEGATIVE Urine Nitrite NEGATIVE NEGATIVE Urine Bilirubin NEGATIVE NEGATIVE Urine Urobilinogen 1.0 < = 1.0 MG/DL Urine Leukocyte Esterase NEGATIVE NEGATIVE Urine RBC (Auto) NEGATIVE NEGATIVE Urine RBC NONE /HPF Urine WBC 0-2 /HPF Urine Crystals PRESENT H /LPF Urine Calcium Oxalate Crystals MODERATE H /LPF Urine Amorphous Sediment MOD ELLIE URATES H /LPF Urine Bacteria NEGATIVE /HPF Urine Casts NONE /LPF Urine Mucus LARGE H /LPF Urine Culture Indicated NO (ELYSSA MORRIS) My Orders Orders - ELYSSA MORRIS Ed Iv/Invasive Line Start (03/07/21 08:51) Cbc With Automated Diff (03/07/21 08:51) Comprehensive Metabolic Panel (03/07/21 08:51) Hs C Reactive Protein (03/07/21 08:51) Lipase (03/07/21 08:51) Ua Culture If Indicated (03/07/21 09:11) Ondansetron Injection (Zofran Injectio (03/07/21 09:45) Lidocaine 2% Viscous 15 Ml (Xylocaine Vi (03/07/21 09:45) Antacid Suspension (Mylanta Suspension (03/07/21 09:45) Famotidine Injection (Pepcid Injection) (03/07/21 09:35) (ELYSSA MORRIS) Medications Given in ED Current Medications Medications Dose Ordered Sig/Augustin Route Start Time Stop Time Status Last Admin Dose Admin Al Hydrox/Mg Hydrox/Simethicone 30 ml ONCE ONCE PO 03/07/21 09:45 03/07/21 09:46 DC 03/07/21 09:40 30 ML Lidocaine HCl 15 ml ONCE ONCE PO 03/07/21 09:45 03/07/21 09:46 DC 03/07/21 09:40 15 ML Ondansetron HCl 4 mg ONCE ONCE IVP 03/07/21 09:45 03/07/21 09:46 DC 03/07/21 09:40 4 MG (ELYSSA MORRIS) Vital Signs/I&O 03/07/21 03/07/21 08:55 10:55 Temp 36.7 Pulse 109 85 Resp 20 18 B/P (MAP) 142/105 (117) 127/91 Pulse Ox 98 96 O2 Delivery Room Air Room Air (ELYSSA MORRIS) Blood Pressure Mean: 117 Progress Progress Note : Time: 10:46 Progress Note I attest that I saw this patient alongside the medical student and agree with his documented history, physical exam and review of systems except as otherwise noted. Patient's pain is improved today by GI cocktail. He says he stopped drinking about 6-8 liquor drinks a day last month when he was first having the pain. He had his gallbladder out by Dr. Ledesma. We will suggest that he follow-up with Dr. Ledesma for EGD and in addition to the Prilosec will put him on Carafate. We recommended antiacids of and simethicone if his pain comes back. 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 Decision time for Depature: 10:45 (ELYSSA MORRIS) Referrals: [facility] (PCP) Primary Care Physician SHANEL AGGARWAL (Family) Primary Care Physician MARIA D LEDESMA DO Patient Instructions: Gastritis (DC) Add. Discharge Instructions: I suspect the lining of your stomach is irritated so were going to put you on some Carafate in addition to the Prilosec that you are taking. Carafate half an hour before meals and at bedtime for the next 2 weeks. If not seeing some improvement then I suggest you follow-up with Dr. Ledesma, general surgery and request further work-up possibly including an EGD as appropriate. If you are having cramping belly pain you may try simethicone/Gas-X If you do have some breakthrough pain you can use antacids such as Tums, Rolaids, Maalox, Mylanta etc. All discharge instructions reviewed with patient and/or family. Voiced understanding. Scripts Sucralfate (Carafate) 1 Gm Tablet 1 GM PO QIDACHS for 14 Days, #56 TAB 0 Refills Prov: ELYSSA MORRIS 03/07/21 Copy Copies To 1: MARIA D LEDESMA [facility] Mar 07, 2021 09:36 ELYSSA MORRIS Mar 07, 2021 10:50
[2021-03-07] MEDS ORDERED: ONDANSETRON 4 MG/2 ML (SDV) Z0FRAN IVP ONE (09:45)
[2021-03-07] MEDS ORDERED: ANTACID SUSP 30 ML UDC (MYLANTA) PO ONE (09:45)
[2021-03-07] MEDS ORDERED: LIDOCAINE 2% VISCOUS 15 ML UDC PO ONE (09:45)
[2021-03-07 09:50] LABS: BACTERIA,URINE NEGATIVE /HPF; WBC,URINE 0-2 /HPF
[2021-03-07 09:51] LABS: AMORPHOUS SEDIMENT,UR MOD AMOR URATES /LPF; CALCIUM OXALATE CRYSTALS,UR MODERATE /LPF
[2021-03-07] MEDS ORDERED: SUCR1TAB36 PO (10:50)
[2021-03-07 10:55] VITALS: BP 127/91
== END 2021-03-07 11:01 | disposition home or self-care (01) ==
LOC: EDUNIT# 08:13 → ER 08:14
DX: K29.20 Alcoholic gastritis without bleeding (principal); I10 Essential (primary) hypertension; K21.9 Gastro-esophageal reflux disease without esophagitis; G89.29 Other chronic pain; M54.9 Dorsalgia, unspecified; F41.9 Anxiety disorder, unspecified; Z79.899 Other long term (current) drug therapy; Z79.891 Long term (current) use of opiate analgesic
CPT/HCPCS: 36415; 80053; 81000; 83690; 85025; 86141

== ENCOUNTER 2021-03-10 13:46 | Emergency (ER) | payer OTHER ==
[~2021-03-10] VITALS: Ht 180 cm; Wt 129.0 kg
[~2021-03-10 13:46] MED LIST changes: +SUCR1TAB36 PO
[2021-03-10] MEDS ORDERED: ANTACID SUSP 30 ML UDC (MYLANTA) PO ONE (14:00)
[2021-03-10] MEDS ORDERED: LIDOCAINE 2% VISCOUS 15 ML UDC PO ONE (14:00)
--- NOTE | 2021-03-10 14:12 | ED Chest Pain ---
General Chief Complaint: Chest Pain Stated Complaint: CHEST TIGHTNESS Source: patient Exam Limitations: no limitations History of Present Illness Date Seen by Provider: Mar 10, 2021 Time Seen by Provider: 14:10 Initial Comments To ER with reports of chest tightness that began last night. Constant since then. He has had a cough and shortness of breath and left second toe numbness for about a week. No fevers or chills. He has COPD but he quit smoking. He is worried because he is trying to adopt a kid and wants to make sure that he is healthy. No history of heart disease no history of diabetes. He feels very anxious because his of lung cancer 9 years ago and he is worried that his chest tightness and cough may represent a lung cancer. He also quit drinking alcohol 1 month ago and feels very anxious likely secondary to this. Timing/Duration: 24 hours Severity/Quality: moderate Location: central Radiation: no radiation Activities at Onset: none ASA po CNS: No NTG SL CNS: No Allergies and Home Medications Allergies Coded Allergies: codeine (Unverified Allergy, Mild, UPSET STOMACH, 05/04/10) Patient Home Medication List Home Medication List Reviewed: Yes Amlodipine Besylate (Amlodipine Besylate) 10 Mg Tablet, 10 MG PO DAILY, (Reported) Entered as Reported by: MARIE MONTOYA on 01/31/19 1006 Amlodipine Besylate (Amlodipine Besylate) 10 Mg Tablet, 10 MG PO DAILY Prescribed by: JOSE CHIN on 02/16/21 1608 Desvenlafaxine Succinate (Pristiq ER) 50 Mg Tab.er.24h, 50 MG PO DAILY, (Reporte d) Entered as Reported by: MARIE MONTOYA on 01/31/19 1006 Docusate Sodium (Colace) 100 Mg Capsule, 100 MG PO BID Prescribed by: MARIA D LEDESMA on 02/06/19 1724 Gabapentin (Gabapentin) 300 Mg Capsule, 300 MG PO DAILY PRN for ANXIETY, (Reported) Entered as Reported by: MARIE MONTOYA on 01/31/19 1006 Hydrocodone Bit/Acetaminophen (Lortab 5 Mg Tablet) 1 Tab Tab, 1-2 TAB PO Q6H PRN for PAIN-MODERATE Prescribed by: MARIA D LEDESMA on 02/06/19 1724 Lisinopril (Lisinopril) 20 Mg Tablet, 20 MG PO DAILY, (Reported) Entered as Reported by: MARIE MONTOYA on 01/31/19 1006 Lisinopril (Lisinopril) 20 Mg Tablet, 20 MG PO DAILY Prescribed by: JOSE CHIN on 02/16/21 1608 Mirtazapine (Mirtazapine) 15 Mg Tablet, 15 MG PO HS, (Reported) Entered as Reported by: MARIE MONTOYA on 01/31/19 1006 Nabumetone (Nabumetone) 750 Mg Tablet, 750 MG PO BID, (Reported) Entered as Reported by: MARIE MONTOYA on 01/31/19 1006 Omeprazole (Omeprazole) 20 Mg Capsule.dr, 20 MG PO DAILY, (Reported) Entered as Reported by: MARIE MONTOYA on 01/31/19 1006 Sucralfate (Carafate) 1 Gm Tablet, 1 GM PO QIDACHS Prescribed by: ELYSSA MORRIS on 03/07/21 1050 Tamsulosin HCl (Flomax) 0.4 Mg Cap, 0.4 MG PO DAILY, (Reported) Entered as Reported by: MARIE MONTOYA on 01/31/19 1006 Zolpidem Tartrate (Zolpidem Tartrate ER) 12.5 Mg Tab.mphase, 12.5 MG PO HS, (Reported) Entered as Reported by: MARIE MONTOYA on 01/31/19 1006 Review of Systems Review of Systems Constitutional: see HPI EENTM: No Symptoms Reported Respiratory: No Symptoms Reported Cardiovascular: See HPI, Chest Pain Gastrointestinal: See HPI, Abdominal Pain Genitourinary: No Symptoms Reported Musculoskeletal: no symptoms reported Skin: no symptoms reported Psychiatric/Neurological: No Symptoms Reported Endocrine: No Symptoms Reported Hematologic/Lymphatic: No Symptoms Reported Past Poymjfu-Xhsrts-Tpvyfr Hx Patient Social History Tobacco Use?: No Smoking Status: Former Smoker Substance use?: No Alcohol Use?: No Pt feels they are or have been: No Immunizations Up To Date Tetanus Booster (TDap): Less than 5yrs Seasonal Allergies Seasonal Allergies: No Past Medical History Surgeries: Yes (right hand surgery/left knee arthroscopy, KIDNEY STONES) Orthopedic Respiratory: No Pneumonia Currently Using CPAP: No Currently Using BIPAP: No Cardiac: Yes Hypertension Neurological: No Reproductive Disorders: No Sexually Transmitted Disease: No HIV/AIDS: No Genitourinary: Yes Prostate Problems, Kidney Stones Gastrointestinal: Yes Gastroesophageal Reflux, Chronic Diarrhea, Ulcer, Gall Bladder Disease Musculoskeletal: Yes (BROKEN ARM ) Chronic Back Pain, Fractures Endocrine: No HEENT: Yes (GLASSES) Loss of Vision: Denies Hearing Impairment: Denies Cancer: No Psychosocial: Yes Anxiety, PTSD Integumentary: No Blood Disorders: No Adverse Reaction/Blood Tranf: No (N/A) Family Medical History Hypertension 19 MOTHER G8 BROTHER G8 BROTHER G8 BROTHER Neoplasm 19 MOTHER No Pertinent Family Hx Physical Exam Vital Signs Vital Signs - First Documented 03/10/21 14:07 Temp 36.5 Pulse 128 Resp 18 B/P (MAP) 171/115 (133) Pulse Ox 96 Capillary Refill : Less Than 3 Seconds Height, Weight, BMI Height: 6'0.00" Weight: 258lbs. 8.0oz. 117.581617kw; 44.00 BMI Method:Stated General Appearance: No Apparent Distress, WD/WN, Anxious, Obese, Other (Alert and oriented very pleasant. Anxious appearing with a heart rate of 110 sinus blood pressure of 170/115. Ordered a milligram of Ativan and a GI cocktail. His EKG is unremarkable showing sinus tachycardia rate of 123. No ST segment changes no ectopy normal intervals.) Neck: Full Range of Motion, Normal Inspection Respiratory: No Accessory Muscle Use, No Respiratory Distress Cardiovascular: Normal Peripheral Pulses, Tachycardia Gastrointestinal: Normal Bowel Sounds, Non Tender, Soft Neurologic/Psychiatric: Alert, Oriented x3 Skin: Normal Color, Warm/Dry Progress/Results/Core Measures Results/Orders Lab Results Laboratory Tests Test 03/10/21 14:00 Range/Units White Blood Count 9.8 4.3-11.0 10^3/uL Red Blood Count 4.94 4.30-5.52 10^6/uL Hemoglobin 16.0 13.3-17.7 g/dL Hematocrit 47 40-54 % Mean Corpuscular Volume 95 80-99 fL Mean Corpuscular Hemoglobin 32 25-34 pg Mean Corpuscular Hemoglobin Concent 34 32-36 g/dL Red Cell Distribution Width 12.1 10.0-14.5 % Platelet Count 255 130-400 10^3/uL Mean Platelet Volume 9.5 9.0-12.2 fL Immature Granulocyte % (Auto) 0 % Neutrophils (%) (Auto) 71 42-75 % Lymphocytes (%) (Auto) 21 12-44 % Monocytes (%) (Auto) 6 0-12 % Eosinophils (%) (Auto) 1 0-10 % Basophils (%) (Auto) 0 0-10 % Neutrophils # (Auto) 7.0 1.8-7.8 X 10^3 Lymphocytes # (Auto) 2.1 1.0-4.0 X 10^3 Monocytes # (Auto) 0.6 0.0-1.0 X 10^3 Eosinophils # (Auto) 0.1 0.0-0.3 10^3/uL Basophils # (Auto) 0.0 0.0-0.1 10^3/uL Immature Granulocyte # (Auto) 0.0 0.0-0.1 10^3/uL Prothrombin Time 13.6 12.2-14.7 SEC INR Comment 1.0 0.8-1.4 Activated Partial Thromboplast Time 29 24-35 SEC D-Dimer < 0.27 0.00-0.49 UG/ML Sodium Level 139 135-145 MMOL/L Potassium Level 3.9 3.6-5.0 MMOL/L Chloride Level 105 98-107 MMOL/L Carbon Dioxide Level 21 21-32 MMOL/L Anion Gap 13 5-14 MMOL/L Blood Urea Nitrogen 16 7-18 MG/DL Creatinine 1.03 0.60-1.30 MG/DL Estimat Glomerular Filtration Rate 78 BUN/Creatinine Ratio 16 Glucose Level 105 70-105 MG/DL Calcium Level 9.5 8.5-10.1 MG/DL Corrected Calcium 8.5-10.1 MG/DL Magnesium Level 2.2 1.6-2.4 MG/DL Total Bilirubin 0.6 0.1-1.0 MG/DL Aspartate Amino Transf (AST/SGOT) 41 H 5-34 U/L Alanine Aminotransferase (ALT/SGPT) 124 H 0-55 U/L Alkaline Phosphatase 97 40-136 U/L Myoglobin 38.9 10.0-92.0 NG/ML Troponin I < 0.028 <0.028 NG/ML B-Type Natriuretic Peptide < 10.0 <100.0 PG/ML Total Protein 7.6 6.4-8.2 GM/DL Albumin 4.6 H 3.2-4.5 GM/DL Lipase 43 8-78 U/L Serum Alcohol < 10 <10 MG/DL My Orders Orders - BRIT ROGERS APRN Cbc With Automated Diff (03/10/21 13:59) Magnesium (03/10/21 13:59) Chest 1 View, Ap/Pa Only (03/10/21 13:59) Ekg Tracing (03/10/21 13:59) Comprehensive Metabolic Panel (03/10/21 13:59) Myoglobin Serum (03/10/21 13:59) Protime With Inr (03/10/21 13:59) Partial Thromboplastin Time (03/10/21 13:59) O2 (03/10/21 13:59) Monitor-Rhythm Ecg Trace Only (03/10/21 13:59) Lipid Panel (03/11/21 06:00) Ed Iv/Invasive Line Start (03/10/21 13:59) BNP (03/10/21 13:59) Fibrin Degradation Products (03/10/21 13:59) Troponin I (03/10/21 13:59) Lipase (03/10/21 13:59) Antacid Suspension (Mylanta Suspension (03/10/21 14:00) Lidocaine 2% Viscous 15 Ml (Xylocaine Vi (03/10/21 14:00) Alcohol (03/10/21 13:59) Lorazepam Injection (Ativan Injection) (03/10/21 14:15) Medications Given in ED Current Medications Medications Dose Ordered Sig/Augustin Route Start Time Stop Time Status Last Admin Dose Admin Al Hydrox/Mg Hydrox/Simethicone 30 ml ONCE ONCE PO 03/10/21 14:00 03/10/21 14:01 DC 03/10/21 14:33 30 ML Lidocaine HCl 15 ml ONCE ONCE PO 03/10/21 14:00 03/10/21 14:01 DC 03/10/21 14:33 15 ML Lorazepam 1 mg ONCE ONCE IVP 03/10/21 14:15 03/10/21 14:16 DC 03/10/21 14:33 1 MG Vital Signs/I&O 03/10/21 14:07 Temp 36.5 Pulse 128 Resp 18 B/P (MAP) 171/115 (133) Pulse Ox 96 Departure Communication (Admissions) Family Conversation Since his pain has been constant for 24 hours and he is without a bump his troponin we do not need to repeat the troponin. Symptoms are better after lorazepam and a GI cocktail. NAME: MONAE FRYE REC#: [id number] PT STATUS: REG ER : 1975 PHYSICIAN: BRIT ROGERS APRN ADMIT DATE: 03/10/21/ER Draft Date of Exam:03/10/21 CHEST 1 VIEW, AP/PA ONLY HISTORY: Chest pain COMPARISON: 02/12/2015 TECHNIQUE: Frontal view of the chest. FINDINGS: Lung volumes are normal. Haziness at the peripheral lungs is thought to be due to overlying soft tissue. No focal consolidation is seen. There is no pleural effusion or pneumothorax. The cardiac silhouette is normal in size. IMPRESSION: 1. No acute pulmonary abnormality. Dictated on workstation # [id number] Dict: 03/10/21 1438 Trans: 03/10/21 1443 [facility] [id number] Interpreted by: CEDRIC MIJARES MD Electronically signed by: Impression Primary Impression: Chest pressure Additional Impression: Anxiety Disposition: 01 HOME, SELF-CARE Condition: Stable Departure-Patient Inst. Decision time for Depature: 14:49 Referrals: [facility] (PCP) Primary Care Physician SHANEL AGGARWAL (Family) Primary Care Physician Patient Instructions: Chest Pain Scripts Hydroxyzine HCl (Hydroxyzine HCl) 25 Mg Tablet 25 MG PO Q6H PRN for ANXIETY, #30 TAB Prov: BRIT ROGERS APRN 03/10/21 Albuterol Sulfate (VENTOLIN HFA) 1 Puff Puff 2 PUFF INH Q4H PRN for SHORTNESS OF BREATH, #1 EA 1 PUFF = 90 MCG Prov: BRIT ROGERS APRN 03/10/21 BRIT ROGERS APRN Mar 10, 2021 14:12
[2021-03-10] MEDS ORDERED: LORazepam INJ 2 MG/ML (ATIVAN) VIAL IVP ONE (14:15)
[2021-03-10 14:21] LABS: BASOPHILS % (AUTO) 0 % (0-10); EOSINOPHILS # (AUTO) 0.1 10^3/uL (0.0-0.3); EOSINOPHILS % (AUTO) 1 % (0-10); HEMATOCRIT 47 % (40-54); LYMPHOCYTES # (AUTO) 2.1 X 10^3 (1.0-4.0); LYMPHOCYTES % (AUTO) 21 % (12-44); MEAN CORPUSCULAR HEMOGLOBIN 32 pg (25-34); MEAN CORPUSCULAR HGB CONC 34 g/dL (32-36); MEAN CORPUSCULAR VOLUME 95 fL (80-99); MEAN PLATELET VOLUME 9.5 fL (9.0-12.2); MONOCYTES # (AUTO) 0.6 X 10^3 (0.0-1.0); MONOCYTES % (AUTO) 6 % (0-12); NEUTROPHILS % (AUTO) 71 % (42-75); PLATELET COUNT 255 10^3/uL (130-400); WHITE BLOOD COUNT 9.8 10^3/uL (4.3-11.0)
[2021-03-10 14:27] LABS: ALBUMIN 4.6 GM/DL (3.2-4.5); CHLORIDE 105 MMOL/L (98-107); POTASSIUM 3.9 MMOL/L (3.6-5.0); SODIUM 139 MMOL/L (135-145)
[2021-03-10 14:28] LABS: CALCIUM 9.5 MG/DL (8.5-10.1)
[2021-03-10 14:30] LABS: GLUCOSE 105 MG/DL (70-105); TOTAL PROTEIN 7.6 GM/DL (6.4-8.2)
[2021-03-10 14:31] LABS: CARBON DIOXIDE 21 MMOL/L (21-32); PROTHROMBIN TIME PATIENT 13.6 SEC (12.2-14.7)
[2021-03-10 14:32] LABS: BILIRUBIN,TOTAL 0.6 MG/DL (0.1-1.0)
[2021-03-10 14:33] LABS: ALKALINE PHOSPHATASE 97 U/L (40-136); CREATININE SERUM 1.03 MG/DL (0.60-1.30); GFR ESTIMATED 78
[2021-03-10 14:34] LABS: BUN/CREATININE RATIO 16; LIPASE 43 U/L (8-78)
[2021-03-10 14:36] LABS: ALANINE AMINOTRANSFERASE 124 U/L (0-55)
[2021-03-10 14:37] LABS: MAGNESIUM 2.2 MG/DL (1.6-2.4)
--- NOTE | 2021-03-10 14:43 | Diagnostic Imaging Report ---
HISTORY: Chest pain COMPARISON: 02/12/2015 TECHNIQUE: Frontal view of the chest. FINDINGS: Lung volumes are normal. Haziness at the peripheral lungs is thought to be due to overlying soft tissue. No focal consolidation is seen. There is no pleural effusion or pneumothorax. The cardiac silhouette is normal in size. IMPRESSION: 1. No acute pulmonary abnormality. Dictated by: Dictated on workstation # [id number]
[2021-03-10] MEDS ORDERED: HYDR-700 PO (15:03)
[2021-03-10] MEDS ORDERED: RT-ALBUINH INH (15:03)
[2021-03-10 15:05] VITALS: BP 159/110
== END 2021-03-10 15:05 | disposition home or self-care (01) ==
LOC: EDUNIT# 13:46 → ER 13:48
DX: R07.89 Other chest pain (principal); F41.9 Anxiety disorder, unspecified; I10 Essential (primary) hypertension; E66.9 Obesity, unspecified; K21.9 Gastro-esophageal reflux disease without esophagitis; G89.29 Other chronic pain; M54.9 Dorsalgia, unspecified; Z87.891 Personal history of nicotine dependence; Z80.1 Family history of malignant neoplasm of trachea, bronchus and lung; Z68.41 Body mass index [BMI] 40.0-44.9, adult; Z79.891 Long term (current) use of opiate analgesic; Z79.899 Other long term (current) drug therapy
CPT/HCPCS: 71045; 80053; 83690; 83735; 83874; 83880; 84484; 85025; 85379; 85610; 85730; 93005; 93041; 99284; G0480; 36415; 80320

== ENCOUNTER → 2021-03-15 | Outpatient (CLI) | payer OTHER ==
[~2021-03-15] MED LIST changes: +HYDR-700 PO; +RT-ALBUINH INH
--- NOTE | 2021-03-15 09:21 | Diagnostic Imaging Report ---
INDICATION: Epididymal cysts TECHNIQUE: Real-time grayscale sonographic imaging and color vascular evaluation of the scrotum. CORRELATION STUDY: None FINDINGS: RIGHT TESTICLE: 5.2 x 2.7 x 3.3 cm. LEFT TESTICLE: 4.8 x 2.7 x 3.0 cm. The testicles are in normal location and demonstrate homogeneous echotexture. There is vascular flow to the testicles. Bilateral epididymal head cysts are present. Largest on the right, 1.3 x 0.9 x 0.8 cm. On the left measures 0.8 x 0.7 x 0.5 cm. Small bilateral hydroceles. IMPRESSION: 1. Unremarkable appearance of the testicles. 2. Bilateral epididymal cysts, largest on the right 1.3 cm. 3. Small bilateral hydroceles. Dictated by: Dictated on workstation # [id number]
== END ==
LOC: RAD 08:46
PROVIDERS: ATTEND Urology
DX: N50.3 Cyst of epididymis (principal); N43.3 Hydrocele, unspecified
CPT/HCPCS: 76870

== ENCOUNTER 2021-04-15 05:28 | Outpatient (RCR) | payer OTHER ==
[~2021-04-15] VITALS: Ht 180.3 cm; Wt 129.3 kg
[~2021-04-15 05:28] MED LIST changes: +CLON0.5T4 PO
[2021-04-19] MEDS ORDERED: PANT40TA2 PO (14:31)
== END 2021-04-15 13:36 | disposition home or self-care (01) ==
LOC: PREOP 05:28
PROVIDERS: ATTEND Surgery
DX: Z01.812 Encounter for preprocedural laboratory examination (principal); Z12.11 Encounter for screening for malignant neoplasm of colon; K21.9 Gastro-esophageal reflux disease without esophagitis; Z20.822 Contact with and (suspected) exposure to COVID-19
CPT/HCPCS: 87635

== ENCOUNTER 2021-04-19 11:38 | Day surgery (SDC) | payer OTHER ==
[~2021-04-19] VITALS: Ht 180.3 cm; Wt 129.3 kg
[2021-04-19] MEDS ORDERED: HURRICAINE EXT TUBE (BENZOCAINE) XX PRN (11:45)
[2021-04-19] MEDS ORDERED: LACTATED RINGERS 1,000 ML IV STA (11:45)
[2021-04-19 12:00] VITALS: BP 162/105
--- NOTE | 2021-04-19 12:27 | Progress Note-Pre Operative ---
Pre-Operative Progress Note H&P Reviewed The H&P was reviewed, patient examined and no changes noted. Date Seen by Provider: Apr 19, 2021 Time Seen by Provider: 12: Date H&P Reviewed: Apr 19, 2021 Time H&P Reviewed: 12: Pre-Operative Diagnosis: gerd, epigastric abdominal pain, screening colon MARIA D LEDESMA DO Apr 19, 2021 12:27
[2021-04-19] MEDS ORDERED: PROPOFOL INJECTION 50 ML IV ONE (13:09)
[2021-04-19] MEDS ORDERED: MIDAZOLAM 2 MG/2 ML (VERSED) VIAL ONE (13:09)
[2021-04-19] MEDS ORDERED: proPOfol 200 MG/20 ML (DIPRIVAN) VIAL IV ONE ×2 (13:37→14:01)
[2021-04-19 14:15] VITALS: BP 96/68
[2021-04-19 14:20] VITALS: BP_SYST 135; BP_SYST 143; BP_DIAS 91; BP_DIAS 96
--- NOTE | 2021-04-19 14:30 | Progress Note-Post Operative ---
Post-Operative Progess Note Surgeon (s)/Camera Operator (s) Surgeon MARIA D LEDESMA DO Camera Operator: na Pre-Operative Diagnosis gerd, epigastric abdominal pain, screening colon Post-Operative Diagnosis gastritis, reflux esophagitis, colon polyps, diverticulosis Procedure & Operative Findings Date of Procedure 04/19/21 Procedure Performed/Findings egd c biopsies, colonoscopy c hot bx polypectomy x 3, snare polypectomy x 3 and fulguration x 6 Anesthesia Type per [facility] Estimated Blood Loss Estimated blood loss (mL): none Specimens/Packing Specimens Removed antrum, body, ge, colon polyps MARIA D LEDESMA DO Apr 19, 2021 14:30
[2021-04-19] MEDS ORDERED: PANT40TA2 PO (14:31)
--- NOTE | 2021-04-19 14:31 | Discharge Inst-Simple/Standard ---
Discharge Inst-Standard Discharge Medications New, Converted or Re-Newed RX: Transmitted to Pharmacy Patient Instructions/Follow Up Plan of Care/Instructions/FU: 2 weeks Tai Activity as Tolerated: Yes Discharge Diet: Regular Diet (high fiber) MARIA D LEDESMA DO Apr 19, 2021 14:31
--- NOTE | 2021-04-19 14:32 | Anesthesia-General Post-Op ---
MAC Patient Condition Mental Status/LOC: Same as Preop Cardiovascular: Satisfactory Nausea/Vomiting: Absent Respiratory: Satisfactory Pain: Controlled Complications: Absent Post Op Complications Complications None Follow Up Care/Instructions Patient Instructions None needed. Anesthesiology Discharge Order Discharge Order Patient was seen after the procedure and he was doing well, no complaints, stable vital signs, no apparent adverse anesthesia problems. MODE GARCIA DO Apr 19, 2021 14:32
[2021-04-19 14:39] VITALS: BP 145/96
[2021-04-19 14:42] VITALS: BP 145/96
--- NOTE | 2021-04-19 22:44 | OPERATIVE REPORT ---
DATE OF SERVICE: 04/19/2021 PREOPERATIVE DIAGNOSES: Gastroesophageal reflux disease, epigastric abdominal pain, screening colonoscopy. POSTOPERATIVE DIAGNOSES: Gastritis, reflux esophagitis, colon polyps, diverticulosis. PROCEDURE: EGD with biopsies, colonoscopy with hot biopsy polypectomy x3 and snare polypectomy x3 and fulguration x6. SURGEON: Maria D Lujan DO ANESTHESIA: Per MDA. ESTIMATED BLOOD LOSS: None. COMPLICATIONS: None. INDICATIONS: The patient is a 45-year-old male with epigastric abdominal pain and reflux and also needing screening colonoscopy. He understands risks and benefits of procedure and wishes to proceed. Consent was signed in the chart. DESCRIPTION OF PROCEDURE: The patient was taken to the endoscopy suite, placed in left lateral recumbent position. Timeout was performed. Scope was inserted in the mouth, down the esophagus, stomach and into the duodenum without difficulty. There were no polyps, masses or ulcerations within the duodenum. Scope was slowly retracted back to stomach where it was further insufflated. Changes of gastritis present. Questionable polyps versus inflammatory changes. Biopsy of the antrum at this area was obtained. Scope was then continuously retracted back with some gastritis type appearance. Biopsy of the body was obtained. Scope was retroflexed noting no other pathology. Scope was returned to its normal position, slowly withdrawn to the distal esophagus, had some changes of reflux esophagitis. Biopsy of the GE junction was obtained. Scope was slowly retracted back until completely removed. Digital rectal exam was performed. There were no palpable polyps, masses or ulcerations. Scope was inserted in the rectum, advanced all the way to cecum with minimal difficulty. Prep was adequate. Scope was then slowly retracted back. No polyps, masses or ulcerations within the cecum. In the ascending colon, larger polyp was present, which snare polypectomy was performed. Unable to suction through that. The snare was used to bisect it and then was able to be suctioned. Scope was then continued slowly retracted back in the ascending colon, another polyp was present, which hot biopsy polypectomy was performed. Scope was then continued slowly retracted back. No polyps, masses or ulcerations within the remainder of the ascending, transverse colon and the descending colon. There was another polyp that snare polypectomy was performed. This was able to be suctioned for specimen. Scope was then continuously retracted back in the sigmoid colon, there were 2 other polyps, which hot biopsy polypectomy was performed. There was another larger pedunculated polyp, which snare polypectomy was performed. In the rectum, there were multiple small punctate polyp appearing benign areas, which were fulgurated in . Scope was then retracted multiple times, noting no other pathology. Scope was then slowly retracted until completely removed. The patient tolerated procedure well without any complications, taken to recovery room in stable condition. RECOMMENDATIONS: The patient was started on Protonix 40 mg daily. The patient will follow up on pathology and discuss pathology results and how symptoms are doing at that time. The patient was recommend repeat colonoscopy in one year for reevaluation. CC: Junior Zaidi - requested, unable to deliver Job ID: [id number] DocumentID: [id number] Dictated Date: 04/19/2021 14:36:39 Instructor Trainer Canine Service Date: 04/19/2021 22:43:57 Dictated By: MARIA D LUJAN DO
== END 2021-04-19 14:43 | disposition home or self-care (01) ==
LOC: ENDO 11:38
PROVIDERS: ATTEND Surgery
DX: Z12.11 Encounter for screening for malignant neoplasm of colon (principal); D12.2 Benign neoplasm of ascending colon; D12.4 Benign neoplasm of descending colon; D12.5 Benign neoplasm of sigmoid colon; K63.5 Polyp of colon; K21.00 Gastro-esophageal reflux disease with esophagitis, without bleeding; K57.90 Diverticulosis of intestine, part unspecified, without perforation or abscess without bleeding; K29.70 Gastritis, unspecified, without bleeding; K31.9 Disease of stomach and duodenum, unspecified; M62.08 Separation of muscle (nontraumatic), other site; I10 Essential (primary) hypertension; F41.9 Anxiety disorder, unspecified; F32.A Depression, unspecified; E66.01 Morbid (severe) obesity due to excess calories; Z68.41 Body mass index [BMI] 40.0-44.9, adult; Z79.899 Other long term (current) drug therapy; Z87.820 Personal history of traumatic brain injury; Z88.5 Allergy status to narcotic agent; Z87.891 Personal history of nicotine dependence

== ENCOUNTER 2022-09-27 05:38 | Outpatient (CLI) | payer OTHER ==
[~2022-09-27] VITALS: Ht 180.3 cm; Wt 134.2 kg
[~2022-09-27 05:38] MED LIST changes: +PANT40TA2 PO
[2022-09-27] MEDS ORDERED: ATOR20TA66 PO (10:04)
[2022-09-27] MEDS ORDERED: OMEP40CA6 PO (10:04)
[2022-09-27] MEDS ORDERED: HYDR50CA3 PO (10:04)
== END 2022-09-27 10:07 | disposition home or self-care (01) ==
LOC: PREOP 05:38
PROVIDERS: ATTEND Surgery
DX: Z01.818 Encounter for other preprocedural examination (principal); Z86.010 Personal history of colon polyps

== ENCOUNTER 2022-10-06 12:48 | Day surgery (SDC) | payer OTHER ==
[~2022-10-06] VITALS: Ht 180.3 cm; Wt 134.2 kg
[~2022-10-06 12:48] MED LIST changes: +ATOR20TA66 PO; +HYDR50CA3 PO; +OMEP40CA6 PO
[2022-10-06] MEDS ORDERED: LACTATED RINGERS 1,000 ML IV STA (12:50)
[2022-10-06 13:10] VITALS: BP 143/112
--- NOTE | 2022-10-06 14:57 | Progress Note-Pre Operative ---
Pre-Operative Progress Note Date H&P Reviewed: Oct 06, 2022 Time H&P Reviewed: 14:57 History & Physical: H&P Reviewed, Patient Examed, No changes noted Pre-Operative Diagnosis: History of colon polyps MARIA D LEDESMA DO Oct 06, 2022 14:57
[2022-10-06] MEDS ORDERED: PROPOFOL INJECTION 50 ML IV ONE (15:38)
[2022-10-06] MEDS ORDERED: proPOfol 200 MG/20 ML (DIPRIVAN) VIAL IV ONE (15:38)
--- NOTE | 2022-10-06 16:03 | Progress Note-Post Operative ---
Post-Operative Progess Note Surgeon (s)/Farm Reporter (s) Surgeon MARIA D LEDESMA DO Farm Reporter: n/a Pre-Operative Diagnosis History of colon polyps Post-Operative Diagnosis Colon polyps, diverticulosis Procedure & Operative Findings Date of Procedure 10/06/22 Procedure Performed/Findings colonoscopy with hot biopsy polypectomy x3 Anesthesia Type per maxillofacial surgeon Estimated Blood Loss Estimated blood loss (mL): none Specimens/Packing Specimens Removed colon polyps MARIA D LEDESMA DO Oct 06, 2022 16:03
--- NOTE | 2022-10-06 16:04 | Discharge Inst-Simple/Standard ---
Discharge Inst-Standard Reconcile Patient Problems Problems Reviewed?: Yes Patient Instructions/Follow Up Plan of Care/Instructions/FU: F/u in [address] Lujan Activity as Tolerated: Yes Discharge Diet: No Restrictions, Regular Diet (high fiber) MARIA D LUJAN DO Oct 06, 2022 16:04
[2022-10-06 16:05] VITALS: BP 136/98
[2022-10-06 16:20] VITALS: BP 143/112
--- NOTE | 2022-10-07 01:15 | OPERATIVE REPORT ---
DATE OF SERVICE: 10/06/2022 PREOPERATIVE DIAGNOSIS: History of colon polyps. POSTOPERATIVE DIAGNOSES: Colon polyps, diverticulosis. PROCEDURE: Colonoscopy with hot biopsy polypectomy x3. SURGEON: Maria D Lujan DO ANESTHESIA: Per AUDIO VISUAL DESIGN ENGINEER. ESTIMATED BLOOD LOSS: None. COMPLICATIONS: None. INDICATIONS: The patient is a 47-year-old male with history of polyps. He understands risks and benefits of procedure and wished to proceed. Consent was signed in chart. DESCRIPTION OF PROCEDURE: The patient was taken to the endoscopy suite, placed in left lateral recumbent position. Timeout was performed. Digital rectal exam was performed. No palpable polyps, masses or ulcerations. The scope was then inserted in the rectum, advanced all the way to the cecum with minimal difficulty. Prep was adequate. Scope was then slowly retracted back. No polyps, masses or ulcerations in the cecum,ascending colon. In the transverse colon, a small polyp was present, which hot biopsy polypectomy was performed. Scope was then continuously retracted back into the descending colon, another polyp was present, which hot biopsy polypectomy was performed. Scope was then continuously retracted back through the sigmoid, which had a little bit of diverticulosis present. Scope was easily retracted back in the rectum, noting a small polyp as well, which hot biopsy polypectomy was performed. Scope was retroflexed noting no other pathology. Scope was returned to its normal position, slowly withdrawn until completely removed. The patient tolerated the procedure well without complications, taken to recovery room in stable condition. RECOMMENDATIONS: The patient will need repeat colonoscopy in 5 years. Any issues before that, be seen at that time. The patient will follow up on pathology in 2 weeks. Job ID: [id number] DocumentID: [id number] Dictated Date: 10/06/2022 21:20:01 Regional Safety Manager Date: 10/07/2022 01:12:00 Dictated By: MARIA D LUJAN DO [facility]Jam
== END 2022-10-06 16:25 | disposition home or self-care (01) ==
LOC: ENDO 12:48
PROVIDERS: ATTEND Surgery
DX: Z12.11 Encounter for screening for malignant neoplasm of colon (principal); D12.3 Benign neoplasm of transverse colon; K63.5 Polyp of colon; K62.1 Rectal polyp; K57.30 Diverticulosis of large intestine without perforation or abscess without bleeding; Z28.310 Unvaccinated for COVID-19; E66.9 Obesity, unspecified; Z87.891 Personal history of nicotine dependence; Z68.41 Body mass index [BMI] 40.0-44.9, adult